=== PATIENT | male | born 1965 | race Caucasian/White ===

== ENCOUNTER 2018-05-20 15:40 | Emergency (ER) | payer BC ==
[2018-05-20] MEDS ORDERED: SODIUM CHLORIDE 0.9% 1,000 ML IV ONE (15:46)
[2018-05-20 15:47] VITALS: TEMP 98.6
[2018-05-20] MEDS ORDERED: DIPH,PERTUS(ACELL)TETVAC-LF 0.5 ML VIAL IM ONE (15:49)
[2018-05-20] MEDS ORDERED: ONDANSETRON 4 MG/2 ML VIAL IVP STA (15:50)
[2018-05-20] MEDS ORDERED: KETOROLAC 60 MG/2 ML VIAL IVP STA (15:50)
[2018-05-20] MEDS ORDERED: HYDROmorphone 1 MG/ML 1 ML SYRINGE IVP STA ×2 (15:50→16:36)
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
[2018-05-20 16:24] LABS: Basophils % (A) 0 %; Eosinophils # (A) 0.1 k/uL (0-0.7); Eosinophils % (A) 1 %; HCT 42.5 % (39.0-53.0); HGB 13.9 gm/dL (13.0-17.5); Lymphocytes # (A) 1.8 k/uL (1.0-4.8); Lymphocytes % (A) 23 %; MCHC 32.9 g/dL (31.0-37.0); MCV 88.4 fL (80.0-100.0); Mean Platelet Volume 7.6; Monocytes # (A) 0.4 k/uL (0-1.0); Monocytes % (A) 5 %; Neutrophils # (A) 5.5 k/uL (1.3-7.7); Neutrophils % (A) 71 %; Platelet Count 249 k/uL (150-450); RDW 14.4 % (11.5-15.5); WBC 7.8 k/uL (3.8-10.6)
[2018-05-20 16:35] LABS: ALT 26 U/L (21-72); AST 30 U/L (17-59); Albumin 4.5 g/dL (3.5-5.0); Alkaline Phosphatase 57 U/L (38-126); Anion Gap 15 mmol/L; Blood Urea Nitrogen 16 mg/dL (9-20); Calcium 9.5 mg/dL (8.4-10.2); Carbon Dioxide 21 mmol/L (22-30); Chloride 103 mmol/L (98-107); Glucose 117 mg/dL (74-99); Sodium 139 mmol/L (137-145); Total Bilirubin 0.6 mg/dL (0.2-1.3); Total Protein 7.5 g/dL (6.3-8.2)
[2018-05-20 17:34] VITALS: BP 141/95; PULSE 80; RESP 20
== END 2018-05-20 17:39 | disposition short-term general hospital (02) ==
LOC: EC 15:40
DX: T23.261A Burn of second degree of back of right hand, initial encounter (principal); T23.241A Burn of second degree of multiple right fingers (nail), including thumb, initial encounter; T22.211A Burn of second degree of right forearm, initial encounter; T31.0 Burns involving less than 10% of body surface; Z23 Encounter for immunization; X19.XXXA Contact with other heat and hot substances, initial encounter; Y93.89 Activity, other specified; Y92.009 Unspecified place in unspecified non-institutional (private) residence as the place of occurrence of the external cause
CPT/HCPCS: 36415; 93005; 80053; 85025; 90715; 99285; 96374; 96375 ×2; 96376; 96361; 90471; J2405; J1885; J1170

== ENCOUNTER 2022-03-15 15:28 | Observation (INO) | payer BC ==
[2022-03-15 16:14] LABS: Basophils # (A) 0.1 k/uL (0-0.2); Basophils % (A) 0 %; Eosinophils # (A) 0.2 k/uL (0-0.7); Eosinophils % (A) 1 %; HCT 47.4 % (39.0-53.0); HGB 15.2 gm/dL (13.0-17.5); Lymphocytes # (A) 1.6 k/uL (1.0-4.8); Lymphocytes % (A) 14 %; MCH 30.7 pg (25.0-35.0); MCV 95.9 fL (80.0-100.0); Mean Platelet Volume 8.7; Monocytes # (A) 0.6 k/uL (0-1.0); Monocytes % (A) 5 %; Neutrophils # (A) 8.8 k/uL (1.3-7.7); Neutrophils % (A) 78 %; Platelet Count 202 k/uL (150-450); RBC 4.94 m/uL (4.30-5.90); RDW 12.7 % (11.5-15.5); WBC 11.3 k/uL (3.8-10.6)
[2022-03-15 16:22] LABS: ALT 18 U/L (4-49); African American GFR (CKD) >90 (>60 ml/min/1.73 sqM); Albumin 4.6 g/dL (3.5-5.0); Anion Gap 13 mmol/L; Blood Urea Nitrogen 15 mg/dL (9-20); Calcium 9.4 mg/dL (8.4-10.2); Carbon Dioxide 24 mmol/L (22-30); Chloride 103 mmol/L (98-107); Glucose 99 mg/dL (74-99); Non-African American GFR(CKD) >90 (>60 ml/min/1.73 sqM); Sodium 140 mmol/L (137-145); Total Bilirubin 1.1 mg/dL (0.2-1.3); Total Protein 7.3 g/dL (6.3-8.2)
[2022-03-15 16:25] LABS: AST 36 U/L (17-59); Alkaline Phosphatase 65 U/L (38-126); Potassium 4.3 mmol/L (3.5-5.1)
[2022-03-15] MEDS ORDERED: NITROGLYCERIN SL TABS 0.4 MG TAB SUBLINGUAL STA (17:12)
[2022-03-15] MEDS ORDERED: ASPIRIN 81 MG PO STA (17:12)
--- NOTE | 2022-03-15 17:29 | ED ---
General Adult HPI - General Chief complaint: Chest Pain Stated complaint: Chest pain Time Seen by Provider: 03/15/22 17:05 Source: patient, RN notes reviewed, old records reviewed Mode of arrival: wheelchair Limitations: no limitations - History of Present Illness Initial comments: Patient is a 56-year-old male with past history remarkable for hypertension, hyperlipidemia who presents to the emergency department complaining of what he describes chest pain. Describes it as a crampy sensation located just under his sternum. Points to his epigastric region. States it somewhat radiates to both sides of his ribs. Denies any nausea or vomiting. Denies any diarrhea. Denies any change in bowel habits. Denies any shortness of breath, cough, fevers, does endorse chills. States that the pain began suddenly at 7 AM this morning. Says PCP, EKG showed sinus arrhythmia and he was sent here for further evaluation. Has not taken anything for the pain. Is not expenses pain previously. Unknown palliative or provocative factors. No change with movement. No change with activity. Denies lower extremity edema. Denies any orthopnea, PND. No history of heart issues. - Related Data Home Medications Medication Instructions Recorded Confirmed Lisinopril-Hctz 20-12.5 mg 1 tab PO DAILY 05/20/18 03/15/22 [Zestoretic 20-12.5] Multivitamins, Thera [Multivitamin 1 tab PO DAILY 05/20/18 03/15/22 (formulary)] Atorvastatin [Lipitor] 10 mg PO HS 03/15/22 03/15/22 Cholecalciferol [Vitamin D3 (125 125 mcg PO DAILY 03/15/22 03/15/22 Mcg = 5000 Iu)] Phentermine HCl [Adipex-P] 37.5 mg PO DAILY 03/15/22 03/15/22 Semaglutide [Ozempic] 0.5 mg SQ FINE 03/15/22 03/15/22 Allergies Allergy/AdvReac Type Severity Reaction Status Date / Time No Known Allergies Allergy Verified 03/15/22 18:22 Review of Systems ROS Statement: Those systems with pertinent positive or pertinent negative responses have been documented in the HPI. Review of Systems: CONST: Denies fever EYES: Denies blurry vision ENT: Denies nasal congestion C/V: Endorses chest pain RESP: Denies shortness of breath GI: Denies abdominal pain : Denies dysuria SKIN: Denies rash. MSK: Denies joint pain. NEURO: Denies headache ROS Other: All systems not noted in ROS Statement are negative. Past Medical History Past Medical History: Hypertension History of Any Multi-Drug Resistant Organisms: None Reported Past Surgical History: Tonsillectomy Additional Past Surgical History / Comment(s): Erika N Y Past Psychological History: No Psychological Hx Reported Past Alcohol Use History: Occasional Past Drug Use History: None Reported General Exam - General Exam Comments Initial Comments: General: Appears in no acute distress. HEAD: Normal with no signs of head trauma. EYES: PERRLA, EOMI, conjunctiva normal, no discharge. ENT: Hearing grossly intact, normal oropharynx. RESPIRATORY: Clear breath sounds bilaterally. No wheezes, rales, or rhonchi. C/V: Regular rate and rhythm. S1 and S2 auscultated, no edema, peripheral pulses 2+ and intact throughout ABD: Abdomen is soft, nondistended. When he points to his chest pain is actually epigastric abdominal pain more so. Mildly tender to palpation in the epigastric . No guarding. No peritoneal signs. No rebound tenderness. EXT: Normal range of motion, no obvious deformity SKIN: No rashes or lesions observed on exposed skin. NEURO: Alert and oriented 4. Limitations: no limitations Course Vital Signs 03/15/22 03/15/22 03/15/22 15:33 18:10 18:45 Temperature 97 F L 98.2 F Pulse Rate 87 70 Pulse Rate [ 73 Pulse Oximetery ] Respiratory 18 16 Rate Blood Pressure 161/94 123/80 O2 Sat by Pulse 98 96 Oximetry Medical Decision Making - Medical Decision Making Based on the patient's presentation and physical exam, I'm concerned for possible cardiopulmonary etiology, could be atypical ACS versus intra-abdominal process. Recommended repeating the EKG and obtaining pancreatic labs. Patient was in agreement with this plan. We'll provide the patient with a dose of aspirin as well as a single nitroglycerin tablet to evaluate for improvement. He was in agreement this plan. Workup was already initiated in triage and is remarkable for an EKG that shows no obvious ischemic process. Patient has a slight leukocytosis of 11.3. Troponin is undetectable. Remainder of the labs are unremarkable. X-rays still pending at this time. We'll repeat EKG. He was in agreement this plan. Vital signs within normal limits. Repeat EKG showed no signs of acute ischemic process. Laboratory studies are remarkable for mild leukocytosis of 11.3. There are 2 negative troponins. Chest x-ray shows no acute cardio pulmonary process. CT abd pelvis shows findings concerning for acute cholecystitis with associated gallbladder wall thickening, adjacent inflammatory changes. On reevaluation, patient still complaining of abdominal pain. We did discuss his findings. Blood cultures will be obtained and we will start him on IV and about expert I recommended admission for surgery evaluation. He was in agreement this plan.Vital signs remained within normal limits. I spoke with the on-call surgeon, Dr. Mohan who accepted the patient. Patient was admitted in stable condition. Patient is made nothing by mouth. IV fluids, as well as IV antibiotics are started. - Lab Data Result diagrams: 03/15/22 16:00 03/15/22 16:00 Lab Results 03/15/22 03/15/22 03/15/22 Range/Units 16:00 16:00 16:00 WBC 11.3 H (3.8-10.6) k/uL RBC 4.94 (4.30-5.90) m/uL Hgb 15.2 (13.0-17.5) gm/dL Hct 47.4 (39.0-53.0) % MCV 95.9 (80.0-100.0) fL MCH 30.7 (25.0-35.0) pg MCHC 32.0 (31.0-37.0) g/dL RDW 12.7 (11.5-15.5) % Plt Count 202 (150-450) k/uL MPV 8.7 Neutrophils % 78 % Lymphocytes % 14 % Monocytes % 5 % Eosinophils % 1 % Basophils % 0 % Neutrophils # 8.8 H (1.3-7.7) k/uL Lymphocytes # 1.6 (1.0-4.8) k/uL Monocytes # 0.6 (0-1.0) k/uL Eosinophils # 0.2 (0-0.7) k/uL Basophils # 0.1 (0-0.2) k/uL PT (9.0-12.0) sec INR (<1.2) APTT (22.0-30.0) sec Sodium 140 (137-145) mmol/L Potassium 4.3 (3.5-5.1) mmol/L Chloride 103 (98-107) mmol/L Carbon Dioxide 24 (22-30) mmol/L Anion Gap 13 mmol/L BUN 15 (9-20) mg/dL Creatinine 0.77 (0.66-1.25) mg/dL Est GFR (CKD-EPI)AfAm >90 (>60 ml/min/1.73 sqM) Est GFR (CKD-EPI)NonAf >90 (>60 ml/min/1.73 sqM) Glucose 99 (74-99) mg/dL Calcium 9.4 (8.4-10.2) mg/dL Total Bilirubin 1.1 (0.2-1.3) mg/dL AST 36 (17-59) U/L ALT 18 (4-49) U/L Alkaline Phosphatase 65 (38-126) U/L Troponin I <0.012 (0.000-0.034) ng/mL Total Protein 7.3 (6.3-8.2) g/dL Albumin 4.6 (3.5-5.0) g/dL Amylase (30-110) U/L Lipase (23-300) U/L 03/15/22 03/15/22 03/15/22 Range/Units 17:37 17:37 18:40 WBC (3.8-10.6) k/uL RBC (4.30-5.90) m/uL Hgb (13.0-17.5) gm/dL Hct (39.0-53.0) % MCV (80.0-100.0) fL MCH (25.0-35.0) pg MCHC (31.0-37.0) g/dL RDW (11.5-15.5) % Plt Count (150-450) k/uL MPV Neutrophils % % Lymphocytes % % Monocytes % % Eosinophils % % Basophils % % Neutrophils # (1.3-7.7) k/uL Lymphocytes # (1.0-4.8) k/uL Monocytes # (0-1.0) k/uL Eosinophils # (0-0.7) k/uL Basophils # (0-0.2) k/uL PT 10.1 (9.0-12.0) sec INR 0.9 (<1.2) APTT 24.3 (22.0-30.0) sec Sodium (137-145) mmol/L Potassium (3.5-5.1) mmol/L Chloride (98-107) mmol/L Carbon Dioxide (22-30) mmol/L Anion Gap mmol/L BUN (9-20) mg/dL Creatinine (0.66-1.25) mg/dL Est GFR (CKD-EPI)AfAm (>60 ml/min/1.73 sqM) Est GFR (CKD-EPI)NonAf (>60 ml/min/1.73 sqM) Glucose (74-99) mg/dL Calcium (8.4-10.2) mg/dL Total Bilirubin (0.2-1.3) mg/dL AST (17-59) U/L ALT (4-49) U/L Alkaline Phosphatase (38-126) U/L Troponin I <0.012 (0.000-0.034) ng/mL Total Protein (6.3-8.2) g/dL Albumin (3.5-5.0) g/dL Amylase 41 (30-110) U/L Lipase 111 (23-300) U/L - EKG Data -: EKG Interpreted by Me EKG Comments: 12-lead Electrocardiogram Interpretation Note EKG was reviewed and interpreted by myself. 12-lead ECG performed at 1540 is interpreted by me as revealing sinus bradycardia at a rate of 54 beats per minute. [place] is normal. NH interval is 150 ms, QRS duration is 105 ms, QTc is 396 ms.. There were no ST or T wave abnormalities to suggest myocardial ischemia or injury. R wave progression across the precordium was satisfactory. By my interpretation this EKG is non-diagnostic for acute ischemia. 12-lead Electrocardiogram Interpretation Note EKG was reviewed and interpreted by myself. 12-lead ECG performed at 1721 is interpreted by me as revealing sinus bradycardia at a rate of 58 beats per minute. [place] is normal. NH interval is 156 ms, QRS duration is 93 ms, QTc is 410 ms.. There were no ST or T wave abnormalities to suggest myocardial ischemia or injury. R wave progression across the precordium was satisfactory. By my interpretation this EKG is non-diagnostic for acute ischemia. No significant change from prior EKG. Disposition Clinical Impression: Acute cholecystitis Disposition: ADMITTED IP TO THIS HOSP Condition: Stable Referrals: Sd Suero MD [Primary Care Provider] - 1-2 days Time of Disposition: 20:50
[2022-03-15] MEDS ORDERED: SODIUM CHLORIDE 0.9% 1,000 ML IV STA ×2 (17:34→21:07)
[2022-03-15] MEDS ORDERED: MAG HYDROX/AL HYDROX/SIMETH 30 ML, HYOSCYAMINE ELIXIR 10 ML, LIDOCAINE VISCOUS 2% 10 ML PO STA ×3 (18:10)
[2022-03-15] MEDS ORDERED: PANTOPRAZOLE 40 MG/10 ML VIAL IVP STA (18:10)
[2022-03-15] MEDS ORDERED: MORPHINE SULFATE 4 MG/ML SYRINGE IVP STA ×2 (18:10→20:04)
[2022-03-15] MEDS ORDERED: ONDANSETRON 4 MG/2 ML VIAL IVP STA (18:10)
[2022-03-15] MEDS ORDERED: diphenhydrAMINE 50 MG/ML 1 ML VIAL IVP STA (18:10)
--- NOTE | 2022-03-15 18:24 | XR ---
EXAMINATION TYPE: XR chest 2V DATE OF EXAM: 03/15/2022 5:34 PM COMPARISON: None TECHNIQUE: XR chest 2V Frontal and lateral views of the chest. CLINICAL INDICATION:Male, 56 years old with history of chest pain; FINDINGS: Lungs/Pleura: There is no evidence of pleural effusion, focal consolidation, or pneumothorax. Pulmonary vascularity: Unremarkable. Heart/mediastinum: Cardiomediastinal silhouette is unremarkable. Musculoskeletal: No acute osseous pathology. IMPRESSION: No acute cardiopulmonary disease/process.
[2022-03-15 18:40] LABS: Amylase 41 U/L (30-110); Lipase 111 U/L (23-300)
[2022-03-15 18:41] LABS: INR 0.9 (<1.2); Partial Thromboplastin Time 24.3 sec (22.0-30.0); Prothrombin Time 10.1 sec (9.0-12.0)
--- NOTE | 2022-03-15 20:54 | CT ---
EXAMINATION TYPE: CT abdomen pelvis w con CT DLP: 1948.5 mGycm, Automated exposure control for dose reduction was used. DATE OF EXAM: 03/15/2022 7:35 PM COMPARISON: None CLINICAL INDICATION:Male, 56 years old with history of abdominal pain; upper abdominal pain TECHNIQUE: Axial CT of the abdomen and pelvis. Sagittal and coronal reformats were created on a [employer] workstation. Contrast used:100 mL of Isovue 300 with IV Contrast, Oral contrast used: without Oral Contrast FINDINGS: LOWER CHEST: Posterior dependent subsegmental atelectasis is noted. ABDOMEN LIVER: Diffusely hypoattenuating parenchyma. GALLBLADDER AND BILE DUCTS: Increased layering densities within the gallbladder lumen which is disten ded and demonstrates thickening of the wall. There is mild fat stranding changes around the gallbladd er. PANCREAS: Unremarkable. SPLEEN: Unremarkable. ADRENAL GLANDS: Unremarkable. KIDNEYS AND URETERS: No evidence of hydronephrosis or renal calculus. The ureters are unremarkable. PELVIS BLADDER: Unremarkable REPRODUCTIVE: Unremarkable. ABDOMEN & PELVIS STOMACH AND BOWEL: No evidence of bowel obstruction. Post surgical changes of the bowel consistent R [id number]. There is a gastric diverticulum extending towards the left adrenal gland. PERITONEUM: No evidence of pneumoperitoneum or free fluid. VASCULATURE: No evidence of aortic aneurysm. MUSCULOSKELETAL: No acute osseous abnormalities. Moderate disc degeneration changes are present throu ghout the thoracolumbar spine. LYMPH NODES: No gross evidence for lymphadenopathy. SOFT TISSUE/ABDOMINAL WALL: Unremarkable IMPRESSION: Findings suspicious for acute cholecystitis with associated wall thickening, adjacent inflammation ch anges and a bladder wall thickening.
[2022-03-15] MEDS ORDERED: ONDANSETRON 4 MG/2 ML VIAL IVP PRN (21:09)
[2022-03-15] MEDS ORDERED: MORPHINE SULFATE 4 MG/ML SYRINGE IV PRN (21:09)
[2022-03-15] MEDS ORDERED: NALOXONE 0.4 MG/ML 1 ML VIAL IV PRN (21:09)
[2022-03-15] MEDS: HYDROmorphone 0.5 MG/0.5 ML SYRINGE IVP PRN (21:48)
[2022-03-15] MEDS: metroNIDAZOLE-NS PMX 500 MG in SALINE 1 100ML.BAG IVPB SCH (23:40)
[2022-03-16] MEDS: HYDROmorphone 0.5 MG/0.5 ML SYRINGE IVP PRN ×4 (03:12→18:34)
[2022-03-16] MEDS: HEPARIN SODIUM,PORCINE/PF 5,000 UNIT/0.5 ML SYRINGE SQ SCH ×4 (03:13→21:04)
[2022-03-16 06:36] LABS: Basophils % (A) 0 %; Eosinophils % (A) 0 %; HGB 13.7 gm/dL (13.0-17.5); Lymphocytes # (A) 1.2 k/uL (1.0-4.8); Lymphocytes % (A) 14 %; MCH 31.2 pg (25.0-35.0); MCHC 32.5 g/dL (31.0-37.0); MCV 95.8 fL (80.0-100.0); Mean Platelet Volume 8.2; Monocytes # (A) 0.8 k/uL (0-1.0); Monocytes % (A) 9 %; Neutrophils # (A) 6.6 k/uL (1.3-7.7); Neutrophils % (A) 76 %; Platelet Count 176 k/uL (150-450); RBC 4.38 m/uL (4.30-5.90); RDW 12.7 % (11.5-15.5); WBC 8.7 k/uL (3.8-10.6)
[2022-03-16 06:52] LABS: African American GFR (CKD) >90 (>60 ml/min/1.73 sqM); Anion Gap 9 mmol/L; Blood Urea Nitrogen 13 mg/dL (9-20); Carbon Dioxide 28 mmol/L (22-30); Chloride 101 mmol/L (98-107); Glucose 114 mg/dL (74-99); Non-African American GFR(CKD) >90 (>60 ml/min/1.73 sqM); Potassium 4.2 mmol/L (3.5-5.1); Sodium 138 mmol/L (137-145)
[2022-03-16] MEDS ORDERED: LISINOPRIL-HCTZ 20-12.5 MG 1 EACH TAB PO SCH (09:00)
[2022-03-16] MEDS: metroNIDAZOLE-NS PMX 500 MG in SALINE 1 100ML.BAG IVPB SCH ×3 (10:04→21:02)
[2022-03-16] MEDS: DEXAMETHASONE SOD PHOSPHATE 4 MG/ML 1 ML VIAL IV ONE (12:42)
[2022-03-16] MEDS: LACTATED RINGERS 1,000 ML IV SCH (12:46)
--- NOTE | 2022-03-16 13:52 | P.GSHP ---
History of Present Illness H&P Date: 03/16/22 CHIEF COMPLAINT: Chest pain HISTORY OF PRESENT ILLNESS: This is a 56-year-old male in initially presented to the hospital with complaints of chest pain. His pain is actually located in the epigastric area. Patient reports that his pain started yesterday around 7 AM. Pain did radiate to his back. He felt that he was having indigestion. Patient reported that symptoms did worsen after he ate peanut butter and jelly. He denies any nausea or vomiting. He had a computed tomography scan of the abdomen and pelvis showing evidence of acute cholecystitis with gallbladder with wall thickening and inflammatory changes. White count was elevated. Patient started on antibiotics. He does have a history of Erika-en-Y gastric bypass surgery as well as history of diabetes mellitus. PAST MEDICAL HISTORY: Hypertension PAST SURGICAL HISTORY: See list. MEDICATIONS: See list. ALLERGIES: See list. SOCIAL HISTORY: No illicit drug use. REVIEW OF SYSTEMS: CONSTITUTIONAL: Denies fever or chills. HEENT: Denies blurred vision, vision changes, or eye pain. Denies hemoptysis CARDIOVASCULAR: Denies chest pain or pressure. RESPIRATORY: No shortness of breath. GASTROINTESTINAL: See HPI for pertinent findings HEMATOLOGIC: Denies bleeding disorders. GENITOURINARY: Denies any blood in urine or increased urinary frequency. SKIN: Denies pruitis. Denies rash. PHYSICAL EXAM: VITAL SIGNS: Reviewed GENERAL: Well-developed in no acute distress. HEENT: No sclera icterus. Extraocular movements grossly intact. Moist buccal mucosa. Head is atraumatic, normocephalic. No nasal drainage. ABDOMEN: Soft. Nondistended. Tenderness to palpation of right upper quadrant NEUROLOGIC: Alert and oriented. Cranial nerves II through XII grossly intact. LABORATORY DATA: WBC is 11.3 down to 8.7 Hgb 13.7 platelets 176 Sodium is 13 potassium 4.2 creatinine 0.82 LFTs are normal Troponin negative 2 lipase 111 IMAGING: Computed tomography scan findings suspicious for acute cholecystitis with ass ociated wall thickening, adjacent inflammation changes. ASSESSMENT: 1. Acute cholecystitis PLAN: -Patient scheduled for laparoscopic cholecystectomy tomorrow with Dr. sexton -Start low-fat diet today -Nothing by mouth after midnight -Medicine service consulted for medical management -Continue antibiotics -Continue IV fluids -Continue antiemetics as needed -Continue pain medication as needed Physician Insole Cementer note has been reviewed by physician. Signing provider agrees with the documented findings, assessment, and plan of care. Past Medical History Past Medical History: Hypertension History of Any Multi-Drug Resistant Organisms: None Reported Past Surgical History: Tonsillectomy Additional Past Surgical History / Comment(s): Erika N Y Past Psychological History: No Psychological Hx Reported Past Alcohol Use History: Occasional Past Drug Use History: None Reported Medications and Allergies Home Medications Medication Instructions Recorded Confirmed Type Lisinopril-Hctz 20-12.5 mg 1 tab PO DAILY 05/20/18 03/15/22 History [Zestoretic 20-12.5] Multivitamins, Thera [Multivitamin 1 tab PO DAILY 05/20/18 03/15/22 History (formulary)] Atorvastatin [Lipitor] 10 mg PO HS 03/15/22 03/15/22 History Cholecalciferol [Vitamin D3 (125 125 mcg PO DAILY 03/15/22 03/15/22 History Mcg = 5000 Iu)] Phentermine HCl [Adipex-P] 37.5 mg PO DAILY 03/15/22 03/15/22 History Semaglutide [Ozempic] 0.5 mg SQ FINE 03/15/22 03/15/22 History Allergies Allergy/AdvReac Type Severity Reaction Status Date / Time No Known Allergies Allergy Verified 03/15/22 18:22 Surgical - Exam Vital Signs Temp Pulse Resp BP Pulse Ox 97 F L 87 18 161/94 98 03/15/22 15:33 03/15/22 15:33 03/15/22 15:33 03/15/22 15:33 03/15/22 15:33 Results - Labs 03/16/22 06:17 03/16/22 06:17 Abnormal Lab Results - Last 24 Hours (Table) 03/15/22 03/16/22 Range/Units 16:00 06:17 WBC 11.3 H (3.8-10.6) k/uL Neutrophils # 8.8 H (1.3-7.7) k/uL Glucose 114 H (74-99) mg/dL Diabetes panel 03/15/22 03/16/22 Range/Units 16:00 06:17 Sodium 140 138 (137-145) mmol/L Potassium 4.3 4.2 (3.5-5.1) mmol/L Chloride 103 101 (98-107) mmol/L Carbon Dioxide 24 28 (22-30) mmol/L BUN 15 13 (9-20) mg/dL Creatinine 0.77 0.82 (0.66-1.25) mg/dL Glucose 99 114 H (74-99) mg/dL Calcium 9.4 9.0 (8.4-10.2) mg/dL AST 36 (17-59) U/L ALT 18 (4-49) U/L Alkaline Phosphatase 65 (38-126) U/L Total Protein 7.3 (6.3-8.2) g/dL Albumin 4.6 (3.5-5.0) g/dL Calcium panel 03/15/22 03/16/22 Range/Units 16:00 06:17 Calcium 9.4 9.0 (8.4-10.2) mg/dL Albumin 4.6 (3.5-5.0) g/dL Pituitary panel 03/15/22 03/16/22 Range/Units 16:00 06:17 Sodium 140 138 (137-145) mmol/L Potassium 4.3 4.2 (3.5-5.1) mmol/L Chloride 103 101 (98-107) mmol/L Carbon Dioxide 24 28 (22-30) mmol/L BUN 15 13 (9-20) mg/dL Creatinine 0.77 0.82 (0.66-1.25) mg/dL Glucose 99 114 H (74-99) mg/dL Calcium 9.4 9.0 (8.4-10.2) mg/dL Adrenal panel 03/15/22 03/16/22 Range/Units 16:00 06:17 Sodium 140 138 (137-145) mmol/L Potassium 4.3 4.2 (3.5-5.1) mmol/L Chloride 103 101 (98-107) mmol/L Carbon Dioxide 24 28 (22-30) mmol/L BUN 15 13 (9-20) mg/dL Creatinine 0.77 0.82 (0.66-1.25) mg/dL Glucose 99 114 H (74-99) mg/dL Calcium 9.4 9.0 (8.4-10.2) mg/dL Total Bilirubin 1.1 (0.2-1.3) mg/dL AST 36 (17-59) U/L ALT 18 (4-49) U/L Alkaline Phosphatase 65 (38-126) U/L Total Protein 7.3 (6.3-8.2) g/dL Albumin 4.6 (3.5-5.0) g/dL
--- NOTE | 2022-03-16 19:20 | P.CONS ---
History of Present Illness - Reason for Consult Consult date: 03/16/22 pre-op evalaution Requesting physician: Chance Mohan - Chief Complaint abdominal pain - History of Present Illness Patient is a 56-year-old male with a history of high blood pressure treated with medications, borderline high cholesterol, and obesity with prior Erika-en-Y gastric bypass who presented to the hospital complaints of abdominal pain. He was subsequently diagnosed with acute cholecystitis and admitted to general surgery. He has been receiving Rocephin and Flagyl. We are asked to consult for preoperative evaluation. Patient seen and examined at bedside. He complains of some right upper quadrant pain, he is feeling rather groggy from the pain medications, he denies any nausea, vomiting, lightheadedness. He denies any history of chest pain, he can easily walk one block or up 2 flights of stairs, he denies any recent shortness of breath. 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 Pertinent positives and negatives as discussed in HPI, a complete review of systems was performed and all other systems are negative. Vital signs reviewed General: nontoxic, no distress, appears at stated age Derm: warm, dry Head: atraumatic, normocephalic, symmetric Eyes: EOMI, no lid lag, anicteric sclera, pupils equal round reactive to light ENT: Nose and ears atraumatic, no thrush, no pharyngeal erythema Neck: No thyromegaly, no cervical lymphadenopathy, trachea midline, supple Mouth: no lip lesion, mucus membranes moist Cardiovascular: S1S2 reg, no murmur, positive posterior tibial pulse bilateral, no edema, capillary refill less than 2 seconds Lungs: clear to auscultation bilateral, no rhonchi, no rales, no wheeze, no accessory muscle use Abdominal: soft, + tender to palpation RUQ, no guarding, no appreciable organomegaly, normal bowel sounds Ext: no gross muscle atrophy, muscle strength intact all 4 extremities, no contractures Neuro: CN II-XII grossly intact, no focal neuro deficits Psych: Alert, oriented, appropriate affect Assessment/Plan: Acute cholecystitis Preoperative risk assessment -NSQIP risk score is below average in all categories for laparoscopic cholecystectomy including serious complications, any complication, chance for postop surgical infection, chance for reoperation, and . -Patient was informed of his score -No need for further preoperative testing -Patient is medically optimized for laparoscopic cholecystectomy -Surgical management -On Rocephin and Flagyl Hypertension - patient blood pressure is low normal - resume lisinopril - follow BP - hold HCTZ Dyslipidemia - statin Pre-DM - resume ozempic on discharge Obesity with BMI 33.2 - adipex - ozempic pre-DM Past Medical History Past Medical History: Hypertension History of Any Multi-Drug Resistant Organisms: None Reported Past Surgical History: Tonsillectomy Additional Past Surgical History / Comment(s): Erika N Y Past Anesthesia/Blood Transfusion Reactions: No Reported Reaction Past Psychological History: No Psychological Hx Reported Past Alcohol Use History: Occasional Past Drug Use History: None Reported Medications and Allergies Home Medications Medication Instructions Recorded Confirmed Type Lisinopril-Hctz 20-12.5 mg 1 tab PO DAILY 05/20/18 03/15/22 History [Zestoretic 20-12.5] Multivitamins, Thera [Multivitamin 1 tab PO DAILY 05/20/18 03/15/22 History (formulary)] Atorvastatin [Lipitor] 10 mg PO HS 03/15/22 03/15/22 History Cholecalciferol [Vitamin D3 (125 125 mcg PO DAILY 03/15/22 03/15/22 History Mcg = 5000 Iu)] Phentermine HCl [Adipex-P] 37.5 mg PO DAILY 03/15/22 03/15/22 History Semaglutide [Ozempic] 0.5 mg SQ FINE 03/15/22 03/15/22 History Allergies Allergy/AdvReac Type Severity Reaction Status Date / Time No Known Allergies Allergy Verified 03/15/22 18:22 Physical Exam Osteopathic Statement: *. No significant issues noted on an osteopathic structural exam other than those noted in the History and Physical/Consult. Vitals: Vital Signs Temp Pulse Pulse Resp BP BP Pulse Ox 03/16/22 15:00 99.2 F 88 16 137/88 17 L 03/16/22 12:17 85 18 03/16/22 12:14 97.5 F L 85 18 142/83 96 03/16/22 10:11 97.9 F 82 18 126/82 95 03/16/22 07:10 135/84 03/16/22 07:00 135/84 03/16/22 06:50 135/84 03/16/22 06:40 135/84 08/10/22 06:30 135/84 03/16/22 06:20 135/84 03/16/22 06:10 135/84 03/16/22 06:00 135/84 92 L 03/16/22 05:50 135/84 92 L 03/16/22 05:40 135/84 93 L 03/16/22 05:30 135/84 91 L 03/16/22 05:20 135/84 92 L 03/16/22 05:10 135/84 91 L 03/16/22 05:00 135/84 90 L 03/16/22 04:50 135/84 92 L 03/16/22 04:40 135/84 90 L 03/16/22 04:30 90 L 03/16/22 04:20 135/84 90 L 03/16/22 04:10 135/84 91 L 03/16/22 04:00 135/84 91 L 03/16/22 03:50 135/84 90 L 03/16/22 03:40 135/84 91 L 03/16/22 03:30 135/84 89 L 03/16/22 03:20 135/84 88 L 03/16/22 03:00 76 16 135/84 95 03/16/22 00:00 124/84 03/15/22 23:50 124/84 03/15/22 23:40 124/84 03/15/22 23:30 124/84 03/15/22 23:20 124/84 03/15/22 23:10 124/84 03/15/22 23:00 124/84 Intake and Output 03/16/22 03/16/22 03/16/22 06:59 14:59 22:59 Intake Total 500 Balance 500 Intake: Oral 500 Other: # Voids 2 Weight 102.058 kg Results CBC & Chem 7: 03/16/22 06:17 03/16/22 06:17 Labs: Abnormal Lab Results - Last 24 Hours (Table) 03/16/22 Range/Units 06:17 Glucose 114 H (74-99) mg/dL
[2022-03-16] MEDS: ATORVASTATIN 10 MG TAB PO SCH (21:04)
[2022-03-17] MEDS: HYDROmorphone 0.5 MG/0.5 ML SYRINGE IVP PRN ×5 (01:52→18:05)
[2022-03-17 05:23] LABS: Basophils % (A) 0 %; Eosinophils % (A) 0 %; HCT 42.7 % (39.0-53.0); HGB 13.8 gm/dL (13.0-17.5); Lymphocytes # (A) 1.8 k/uL (1.0-4.8); Lymphocytes % (A) 15 %; MCH 30.6 pg (25.0-35.0); MCHC 32.3 g/dL (31.0-37.0); MCV 94.7 fL (80.0-100.0); Mean Platelet Volume 8.1; Monocytes % (A) 9 %; Neutrophils # (A) 8.9 k/uL (1.3-7.7); Neutrophils % (A) 75 %; Platelet Count 162 k/uL (150-450); RBC 4.51 m/uL (4.30-5.90); RDW 12.9 % (11.5-15.5); WBC 11.9 k/uL (3.8-10.6)
[2022-03-17 05:34] LABS: African American GFR (CKD) >90 (>60 ml/min/1.73 sqM); Anion Gap 8 mmol/L; Blood Urea Nitrogen 9 mg/dL (9-20); Calcium 8.6 mg/dL (8.4-10.2); Carbon Dioxide 26 mmol/L (22-30); Chloride 98 mmol/L (98-107); Glucose 97 mg/dL (74-99); Non-African American GFR(CKD) >90 (>60 ml/min/1.73 sqM); Sodium 132 mmol/L (137-145)
[2022-03-17] MEDS: metroNIDAZOLE-NS PMX 500 MG in SALINE 1 100ML.BAG IVPB SCH ×3 (05:57→20:57)
[2022-03-17] MEDS: lisinopriL 20 MG TAB PO SCH (09:14)
[2022-03-17] MEDS: HEPARIN SODIUM,PORCINE/PF 5,000 UNIT/0.5 ML SYRINGE SQ SCH ×3 (09:21→22:59)
--- NOTE | 2022-03-17 14:23 | P.PN ---
Subjective Progress Note Date: 03/17/22 (delayed charting seen at 0900) Patient is a 56-year-old male with a history of high blood pressure treated with medications, borderline high cholesterol, and obesity with prior Erika-en-Y gastric bypass who presented to the hospital complaints of abdominal pain. He was subsequently diagnosed with acute cholecystitis and admitted to general surgery. He has been receiving Rocephin and Flagyl. Patient seen and examined at bedside. He continues to have some right upper quadrant pain and just feel "not right". He denies any chest pain or shortness of breath. He is excited to get his surgery done. General: nontoxic, no distress, appears at stated age Derm: warm, dry Head: atraumatic, normocephalic, symmetric Eyes: EOMI, no lid lag, anicteric sclera Mouth: no lip lesion, mucus membranes moist Cardiovascular: S1S2 reg, no murmur, positive posterior tibial pulse bilateral, Lungs: CTA bilateral, no rhonchi, no rales , no accessory muscle use Abdominal: soft, tender to palpation right upper quadrant, no guarding, no appreciable organomegaly Ext: no gross muscle atrophy, no edema, no contractures Neuro: CN II-XI grossly intact, no focal neuro deficits Psych: Alert, oriented, appropriate affect Assessment/Plan: Acute cholecystitis Preoperative risk assessment -Patient is medically optimized for laparoscopic cholecystectomy -Surgical management -On Rocephin and Flagyl + BC with gram positive - waitng final results - conitnue current abx - may be contaminant vs entercoccus Hypertension - patient blood pressure is low normal - Lisinopril - follow BP - hold HCTZ Dyslipidemia - statin Pre-DM - resume ozempic on discharge Obesity with BMI 33.2 - may resume adipex and ozempic D/W surgery Objective - Vital Signs Vital signs: Vital Signs Temp 99.0 F 03/17/22 07:00 Pulse 77 03/17/22 07:00 Resp 18 03/17/22 09:14 BP 130/75 03/17/22 07:00 Pulse Ox 93 L 03/17/22 07:00 FiO2 Intake & Output 03/16/22 03/17/22 03/17/22 18:59 06:59 18:59 Intake Total 500 Balance 500 Weight 102.058 kg Intake: Oral 500 Other: Voiding Method Toilet # Voids 2 1 - Labs CBC & Chem 7: 03/17/22 04:43 03/17/22 04:43 Labs: Abnormal Lab Results - Last 24 Hours (Table) 03/17/22 03/17/22 Range/Units 04:43 04:43 WBC 11.9 H (3.8-10.6) k/uL Neutrophils # 8.9 H (1.3-7.7) k/uL Sodium 132 L (137-145) mmol/L Microbiology - Last 24 Hours (Table) 03/15/22 22:10 Blood Culture Gram Stain - Preliminary Blood 03/15/22 22:10 Blood Culture - Final Blood 03/15/22 22:24 Blood Culture - Preliminary Blood No Growth after 24 hours
[2022-03-17] MEDS ORDERED: MIDAZOLAM 2 MG/2 ML VIAL ONE (14:30)
[2022-03-17] MEDS ORDERED: LIDOCAINE 2% INJ 20 MG/ML (2 ML VIAL) ONE (14:30)
[2022-03-17] MEDS ORDERED: PROPOFOL 10 MG/ML 20 ML VIAL IV ONE (14:30)
[2022-03-17] MEDS ORDERED: SUCCINYLCHOLINE CHLORIDE 200 MG/10 ML VIAL IV ONE (14:30)
[2022-03-17] MEDS ORDERED: PHENYLEPHRINE-0.9% NACL SYG 1,000 MCG/10 ML SYRINGE ONE (14:30)
[2022-03-17] MEDS ORDERED: fentaNYL (PF) 50 MCG/ML 2 ML AMP ONE (14:30)
[2022-03-17] MEDS ORDERED: IV FLUID CONTINUATION 600 ML IV ONE (16:05)
[2022-03-17 16:16] LABS: Glucose,Whole Blood 83 mg/dL (70-110)
[2022-03-17] MEDS: DEXAMETHASONE SOD PHOSPHATE 4 MG/ML 1 ML VIAL IV ONE (16:19)
[2022-03-17] MEDS: LACTATED RINGERS 1,000 ML IV SCH (16:28)
[2022-03-17] MEDS ORDERED: BUPIVACAIN-EPI 0.25%-1:200,000 30 ML VIAL SQ ONE (16:53)
[2022-03-17] MEDS ORDERED: SODIUM CHLORIDE 0.9% 100 ML with ceFAZolin 2,000 MG IV ONE ×4 (17:00)
[2022-03-17] MEDS ORDERED: LACTATED RINGERS 1,000 ML IV ONE (17:22)
--- NOTE | 2022-03-17 17:41 | P.OP ---
Date of Procedure: 03/17/22 Preoperative Diagnosis: Acute cholecystitis Postoperative Diagnosis: Gangrenous cholecystitis Procedure(s) Performed: Laparoscopic cholecystectomy Anesthesia: ASHWIN Surgeon: Chance Mohan Estimated Blood Loss (ml): 25 Pathology: other (Gallbladder) Condition: stable Disposition: PACU Description of Procedure: The patient was placed on the operating table. The patient received a general endotracheal tube anesthesia. The patients abdomen was prepped and draped in the usual sterile fashion. Through an infraumbilical stab incision, the fascia of the anterior abdominal wall was grasped with a pair of Kochers and then the Veress needle was placed in the peritoneal cavity. Position of the Veress needle was confirmed with positive drop test. The abdomen was then insufflated. After adequate insufflation, the 10 mm trocar was placed in the peritoneal cavity. Following this the laparoscope was placed in the peritoneal cavity. The patient was placed in the head-up, right side up position and then a 5 mm trocar was placed in the right lateral and right subcostal position under direct visualization. A 8 mm trocar was placed in the epigastric position. The gallbladder was visualized. There appeared to be patchy necrosis of the gallbladder. The gallbladder was quite thickened. The gallbladder was hydropic. The gallbladder is aspirated prior to grasping the gallbladder. There was thick mucopurulent fluid within the gallbladder. The gallbladder was grasped in the fundus and infundibulum. Traction on the gallbladder was placed in the lateral and the cephalad positions. The triangle of Calot was visualized.. The cystic duct was bluntly dissected until the union of the cystic duct and common bile duct was seen. A critical view of safety was achieved. The cystic duct was then divided and sealed with the Harmonic scissors. A PDS Endoloop was then placed throughout the cystic duct stump. The cystic artery divided and sealed with the Harmonic scissors. The gallbladder was then removed from the liver bed using Harmonic scissors. The gallbladder was then extracted through the epigastric port site. Operative field was checked for any bleeding spots and Harmonic scissors was used to coagulate the liver bed. The abdomen was irrigated. A GENNY drain was placed in gallbladder fossa. The trocars were removed. The skin was closed using interrupted 3-0 Vicryl suture. Dermabond dressing were applied. The patient tolerated the procedure well.
[2022-03-17] MEDS: ATORVASTATIN 10 MG TAB PO SCH (20:57)
[2022-03-17] MEDS: HYDROmorphone 1 MG/ML 1 ML SYRINGE IVP PRN (21:08)
[2022-03-18] MEDS: HYDROmorphone 1 MG/ML 1 ML SYRINGE IVP PRN ×3 (01:29→19:22)
[2022-03-18] MEDS: metroNIDAZOLE-NS PMX 500 MG in SALINE 1 100ML.BAG IVPB SCH ×3 (05:54→21:22)
[2022-03-18] MEDS: HYDROmorphone 0.5 MG/0.5 ML SYRINGE IVP PRN ×3 (06:03→13:03)
[2022-03-18] MEDS: lisinopriL 20 MG TAB PO SCH (08:41)
[2022-03-18] MEDS: ENOXAPARIN 40 MG/0.4 ML SYRINGE SQ SCH (08:41)
[2022-03-18] MEDS: HEPARIN SODIUM,PORCINE/PF 5,000 UNIT/0.5 ML SYRINGE SQ SCH ×2 (08:42→16:42)
--- NOTE | 2022-03-18 12:05 | P.PN ---
Subjective Progress Note Date: 03/18/22 Principal diagnosis: Gangrenous cholecystitis 56-year-old male says he feels somewhat better today. Still having surgical site discomfort and mild right shoulder pain. GENNY drain is serosanguineous. Tolerating low-fat regular diet. Objective - Vital Signs Vital signs: Vital Signs Temp 98.7 F 03/18/22 07:20 Pulse 78 03/18/22 07:20 Resp 18 03/18/22 07:20 BP 118/70 03/18/22 07:20 Pulse Ox 94 L 03/18/22 10:34 FiO2 Intake & Output 03/17/22 03/18/22 03/18/22 18:59 06:59 18:59 Intake Total 1500 240 Output Total 50 405 Balance 1450 -405 240 Intake: IV 1500 Oral 240 Output: Drainage 105 Abdomen 105 Urine 300 Estimated Blood Loss 50 Other: Voiding Method Toilet Urinal # Voids 1 1 - Exam Abdomen: Soft, mild distention, mild incisional tenderness, no erythema, GENNY drain is serosanguineous - Labs CBC & Chem 7: 03/17/22 04:43 03/17/22 04:43 Labs: Microbiology - Last 24 Hours (Table) 03/15/22 22:24 Blood Culture - Preliminary Blood No Growth after 48 hours 03/15/22 22:10 Blood Culture Gram Stain - Preliminary Blood 03/15/22 22:10 Blood Culture - Final Blood Assessment and Plan (1) Acute cholecystitis Narrative/Plan: Patient seems to be doing better at this time. Continue antibiotics. Repeat labs tomorrow. Ambulate. Continue low-fat diet. Monitor GENNY drain. Current Visit: Yes Status: Acute Code(s): K81.0 - ACUTE CHOLECYSTITIS SNOMED Code(s): 91118548
--- NOTE | 2022-03-18 12:23 | P.PN ---
Subjective Progress Note Date: 03/18/22 Patient is a 56-year-old male with a history of high blood pressure treated with medications, borderline high cholesterol, and obesity with prior Erika-en-Y gastric bypass who presented to the hospital complaints of abdominal pain. He was subsequently diagnosed with acute cholecystitis and admitted to general surgery. He has been receiving Rocephin and Flagyl. He underwent lap carlos with drain placement on 03/17/22. Patient seen and examined at bedside. Pain is well controlled, had some bleeding around the GENNY drain last night. General: nontoxic, no distress, appears at stated age Derm: warm, dry Head: atraumatic, normocephalic, symmetric Eyes: EOMI, no lid lag, anicteric sclera Mouth: no lip lesion, mucus membranes moist Cardiovascular: S1S2 reg, no murmur, positive posterior tibial pulse bilateral, Lungs: CTA bilateral, no rhonchi, no rales , no accessory muscle use Abdominal: soft, + tender to palpation diffusely, no guarding, GENNY with serosanganous fluid in place. Ext: no gross muscle atrophy, no edema, no contractures Neuro: CN II-XI grossly intact, no focal neuro deficits Psych: Alert, oriented, appropriate affect Assessment/Plan: Acute gangrenous Cholecystitis -Surgical management -On Rocephin and Flagyl + BC with gram positive - awaiting final results - continue current abx - may be skin contaminant vs entercoccus Hypertension - patient blood pressure is low normal - Lisinopril, new RX sent for lisinopril without HCTZ for discharge - follow BP - hold HCTZ Dyslipidemia - statin Pre-DM - resume ozempic on discharge Obesity with BMI 33.2 - may resume adipex and ozempic If BC consistent with skin contaminent, patient medically optimized for discharge. Called [facility] main lab and BC still pending at this time. Objective - Vital Signs Vital signs: Vital Signs Temp 98.7 F 03/18/22 07:20 Pulse 78 03/18/22 07:20 Resp 18 03/18/22 07:20 BP 118/70 03/18/22 07:20 Pulse Ox 94 L 03/18/22 10:34 FiO2 Intake & Output 03/17/22 03/18/22 03/18/22 18:59 06:59 18:59 Intake Total 1500 240 Output Total 50 405 Balance 1450 -405 240 Intake: IV 1500 Oral 240 Output: Drainage 105 Abdomen 105 Urine 300 Estimated Blood Loss 50 Other: Voiding Method Toilet Urinal # Voids 1 1 - Labs CBC & Chem 7: 03/17/22 04:43 03/17/22 04:43 Labs: Microbiology - Last 24 Hours (Table) 03/15/22 22:24 Blood Culture - Preliminary Blood No Growth after 48 hours 03/15/22 22:10 Blood Culture Gram Stain - Preliminary Blood 03/15/22 22:10 Blood Culture - Final Blood
[2022-03-18] MEDS: LACTATED RINGERS 1,000 ML IV SCH (13:00)
[2022-03-18] MEDS: ATORVASTATIN 10 MG TAB PO SCH (21:23)
[2022-03-19] MEDS: HEPARIN SODIUM,PORCINE/PF 5,000 UNIT/0.5 ML SYRINGE SQ SCH ×3 (00:40→15:10)
[2022-03-19] MEDS: HYDROmorphone 1 MG/ML 1 ML SYRINGE IVP PRN ×2 (00:40→06:06)
[2022-03-19] MEDS: metroNIDAZOLE-NS PMX 500 MG in SALINE 1 100ML.BAG IVPB SCH ×2 (06:05→13:56)
[2022-03-19] MEDS: ENOXAPARIN 40 MG/0.4 ML SYRINGE SQ SCH (08:02)
[2022-03-19] MEDS: lisinopriL 20 MG TAB PO SCH (08:03)
[2022-03-19 08:18] VITALS: RESP 18
[2022-03-19 08:56] LABS: Basophils # (A) 0.03 X 10*3/uL (0.00-0.10); Basophils % (A) 0.3 %; Eosinophils # (A) 0.12 X 10*3/uL (0.04-0.35); Eosinophils % (A) 1.2 %; HCT 36.3 % (39.6-50.0); HGB 12.4 g/dL (13.0-17.0); Immature Grans, Automated 0.3 %; Lymphocytes # (A) 1.44 X 10*3/uL (0.90-5.00); Lymphocytes % (A) 14.4 %; MCH 31.3 pg (27.0-32.0); MCHC 34.2 g/dL (32.0-37.0); MCV 91.7 fL (80.0-97.0); Monocytes # (A) 1.27 X 10*3/uL (0.20-1.00); Monocytes % (A) 12.7 %; NRBC Per 100 WBC 0 /100 WBCS (0.0-0.0); Neutrophils # (A) 7.08 X 10*3/uL (1.80-7.70); Neutrophils % (A) 71.1 %; Platelet Count 210 X 10*3/uL (140-440); RBC 3.96 X 10*6/uL (4.40-5.60); RDW 13.2 % (11.5-14.5); WBC 9.97 X 10*3/uL (4.50-10.00)
[2022-03-19 10:14] LABS: African American GFR (CKD) 122.3 (60.0-200.0); Albumin 3.4 g/dL (3.8-4.9); Albumin/Globulin Ratio 1.48 (1.60-3.17); Anion Gap 12.3 mmol/L (10.00-18.00); BUN/Creat Ratio 15.14 Ratio (12.00-20.00); Blood Urea Nitrogen 10.6 mg/dL (9.0-27.0); Calcium 8.3 mg/dL (8.7-10.3); Carbon Dioxide 23.7 mmol/L (20.0-27.5); Globulin 2.3 g/dL (1.6-3.3); Non-African American GFR(CKD) 105.5 (60.0-200.0); Potassium 3.9 mmol/L (3.5-5.5); Total Bilirubin 1.1 mg/dL (0.30-1.20); Total Protein 5.7 g/dL (6.2-8.2)
[2022-03-19] MEDS: LACTATED RINGERS 1,000 ML IV SCH (11:26)
--- NOTE | 2022-03-19 11:58 | P.PN ---
Subjective Progress Note Date: 03/19/22 Patient was seen this morning. He denies any acute complaints. He states that he has not had a bowel movement however has been passing gas. He says that there is only minimal output from his GENNY drain. I discussed with the patient and his at bedside that his blood culture that was positive is likely a contaminant. Objective - Vital Signs Vital signs: Vital Signs Temp 99.3 F 03/19/22 07:00 Pulse 85 03/19/22 07:00 Resp 18 03/19/22 07:00 BP 112/69 03/19/22 07:00 Pulse Ox 96 03/19/22 07:40 FiO2 Intake & Output 03/18/22 03/19/22 03/19/22 18:59 06:59 18:59 Intake Total 358 600 Output Total 30 980 Balance 328 -980 600 Intake: Oral 358 600 Output: Drainage 30 80 Abdomen 30 80 Urine 900 Other: Voiding Method Toilet Toilet # Voids 3 2 - Exam General examination - Alert and Oriented 3 in NAD Heart - + S1S2 no murmurs Lungs - Clear to auscultation Abdomen soft NT ND +ve BS Extremities - No edema [employer] - Moving all 4 extremities spontaneously Psych - Calm and cooperative - Labs CBC & Chem 7: 03/19/22 05:23 03/19/22 05:23 Labs: Abnormal Lab Results - Last 24 Hours (Table) 03/19/22 03/19/22 Range/Units 05:23 05:23 RBC 3.96 L (4.40-5.60) X 10*6/uL Hgb 12.4 L (13.0-17.0) g/dL Hct 36.3 L (39.6-50.0) % Monocytes # 1.27 H (0.20-1.00) X 10*3/uL Sodium 132 L (135-145) mmol/L Glucose 114 H (70-110) mg/dL Calcium 8.3 L (8.7-10.3) mg/dL Total Protein 5.7 L (6.2-8.2) g/dL Albumin 3.4 L (3.8-4.9) g/dL Albumin/Globulin Ratio 1.48 L (1.60-3.17) g/dL Microbiology - Last 24 Hours (Table) 03/15/22 22:24 Blood Culture - Preliminary Blood No Growth after 72 hours 03/15/22 22:10 Blood Culture Gram Stain - Preliminary Blood Blood Culture - Preliminary Micrococcus species Assessment and Plan Assessment: Acute gangrenous cholecystitis Surgical management On Rocephin and Flagyl / blood cultures positive for gram-positive cocci -Blood cultures are growing micrococcus species -This is likely a contaminant Hypertension -Hold hydrochlorothiazide on discharge -New prescription for lisinopril sent to pharmacy Dyslipidemia -Resume statin Prediabetes -Resumeozempic on discharge Obesity with BMI of 33 -Encourage weight loss Patient stable for discharge from a medical standpoint.
[2022-03-19 14:22] VITALS: BP 126/78; PULSE 94; TEMP 98.4
--- NOTE | 2022-03-19 17:26 | P.DS ---
Providers Date of admission: 03/15/22 21:09 Expected date of discharge: 03/19/22 Attending physician: Chance Mohan Consults: 03/16/22 13:53 Consult Physician Routine Consulting Provider: Lynette Vinson Consult Reason/Comments: medical management Do you want consulting provider notified?: Yes Primary care physician: Sd Ram Pio [facility] Course: CHIEF COMPLAINT: Gangrenous cholecystitis HISTORY OF PRESENT ILLNESS: The patient is a 56-year-old male was admitted with gangrenous cholecystitis. He underwent cholecystectomy. GENNY drain was placed. He reports moderate improvement in abdominal pain. ROS: No reports of nausea and vomiting. No new chest pain. No productive sputum PHYSICAL EXAM: VITAL SIGNS: Reviewed CONSTITUTIONAL: Well developed and in no acute distress. EYES: Conjuctivae without sclera icterus. Extraocular movements grossly intact. HEAD, EARS, NOSE, THROAT: Moist buccal mucosa. Head is atraumatic, normocephalic. Hears conversational speech. No nasal drainage. RESPIRATORY: Non-labored respirations and equal bilateral excursions. CARDIOVASCULAR: Palpable 2+ radial pulses. ABDOMEN: GENNY serosanguineous. No peritonitis. MUSCULOSKELETAL: No gross deformity of the lower extremities noted. No clubbing. No cyanosis. SKIN: Good skin turgor. Well perfused. NEUROLOGIC: Cranial nerves II through XII grossly intact. No focal or lateralizing signs. PSYCH: Appropriate affect. Alert and oriented to person, place and time. CLINICAL LABS: Reviewed. WBC normal 9.97. LFTs normal. ASSESSMENT: 1. Gangrenous cholecystitis PLAN: 1. Review of blood cultures more consistent with contamination. 2. Otherwise, discharge home with antibiotics and GENNY drain reviewed. 3. Follow up with surgeon in 1 week. Patient Condition at Discharge: Stable Plan - Discharge Summary Discharge Rx Participant: No New Discharge Prescriptions: New Docusate [Colace] 100 mg PO BID #20 capsule Ibuprofen [Motrin] 600 mg PO Q6HR PRN #40 tab PRN Reason: Pain oxyCODONE HCL [OxyIR] 5 mg PO Q6H PRN 3 Days #10 tab PRN Reason: Pain lisinopriL [Zestril] 20 mg PO DAILY #30 tab Amoxic-Pot Clav 875-125Mg [Augmentin 875-125] 1 tab PO BID 1 Days #20 tab Acetaminophen Tab [Tylenol] 650 mg PO Q6H #30 tab Continue Multivitamins, Thera [Multivitamin (formulary)] 1 tab PO DAILY Semaglutide [Ozempic] 0.5 mg SQ FINE Cholecalciferol [Vitamin D3 (125 Mcg = 5000 Iu)] 125 mcg PO DAILY Phentermine HCl [Adipex-P] 37.5 mg PO DAILY Atorvastatin [Lipitor] 10 mg PO HS Discontinued Lisinopril-Hctz 20-12.5 mg [Zestoretic 20-12.5] 1 tab PO DAILY Discharge Medication List Multivitamins, Thera [Multivitamin (formulary)] 1 tab PO DAILY 05/20/18 [History] Atorvastatin [Lipitor] 10 mg PO HS 03/15/22 [History] Cholecalciferol [Vitamin D3 (125 Mcg = 5000 Iu)] 125 mcg PO DAILY 03/15/22 [History] Phentermine HCl [Adipex-P] 37.5 mg PO DAILY 03/15/22 [History] Semaglutide [Ozempic] 0.5 mg SQ FINE 03/15/22 [History] Acetaminophen Tab [Tylenol] 650 mg PO Q6H #30 tab 03/17/22 [Rx] Docusate [Colace] 100 mg PO BID #20 capsule 03/17/22 [Rx] Ibuprofen [Motrin] 600 mg PO Q6HR PRN #40 tab 03/17/22 [Rx] oxyCODONE HCL [OxyIR] 5 mg PO Q6H PRN 3 Days #10 tab 03/17/22 [Rx] lisinopriL [Zestril] 20 mg PO DAILY #30 tab 03/18/22 [Rx] Amoxic-Pot Clav 875-125Mg [Augmentin 875-125] 1 tab PO BID 1 Days #20 tab 03/19/22 [Rx] Follow up Appointment(s)/Referral(s): Sd Suero MD [Primary Care Provider] - 1-2 days Chance Mohan MD [STAFF PHYSICIAN] - 1 Week Patient Instructions/Handouts: Laparoscopic Cholecystectomy (DC) Discharge Disposition: HOME SELF-CARE
[2022-03-20] MEDS ORDERED: NON FORMULARY DRUG (Semaglutide [Ozempic] 2 MG/0.75 ML Pen.Injctr) SQ SCH (09:00)
== END 2022-03-19 18:13 | disposition home or self-care (01) ==
LOC: EC 15:28 → 6NMEDSUR 21:09
PROVIDERS: ADMIT Surgery; ATTEND Surgery
DX: K80.00 Calculus of gallbladder with acute cholecystitis without obstruction (principal); K82.A1 Gangrene of gallbladder in cholecystitis; I10 Essential (primary) hypertension; E78.00 Pure hypercholesterolemia, unspecified; J98.11 Atelectasis; E11.9 Type 2 diabetes mellitus without complications; E66.9 Obesity, unspecified; K31.4 Gastric diverticulum; Z79.899 Other long term (current) drug therapy; Z98.84 Bariatric surgery status; Z68.33 Body mass index [BMI] 33.0-33.9, adult
CPT/HCPCS: 96376 ×5; 96366 ×5; 96372 ×5; 96375 ×2; 96365; 96367; 99285; 36415; 94760 ×2; 93005; 88304; 80053 ×2; 80048 ×2; 82150; 83690; 84484; 85025 ×4; 85610; 85730; 87040; 71046; 74177; 47562; G0378 ×5; J2250; J0330; J2270; J1200; J1100 ×2; J2405 ×2; J0690; J1650; J0696 ×5; J3010; J1170 ×7; J2370; J2704; C9113; Q9967; J1644 ×3; J2001

== ENCOUNTER 2024-02-22 18:44 | Inpatient (IN) | payer BC, OTHER ==
--- NOTE | 2024-02-22 19:18 | ED ---
Abdominal Pain HPI - General Chief Complaint: Abdominal Pain Stated Complaint: Colon Abscess Time Seen by Provider: 02/22/24 19:00 Source: patient, family, RN notes reviewed Mode of arrival: ambulatory Limitations: no limitations - History of Present Illness Initial Comments: 58-year-old male presenting with right upper quadrant pain x 3 weeks. States he has been having increasing sharp pain in the right upper quadrant. He admits constipation as well. He visited urgent care yesterday where they took an abdominal x-ray, which was negative, and ordered a CT scan of the abdomen for today. He was placed on amoxicillin. Patient was called after the CT scan of the abdomen today and told that he had an "abscess" on the right side of his abdomen. Denies fevers, chills, vomiting, dysuria. He has never had this before. States he has a history of a cholecystectomy and gastric bypass surgery. His past medical history also includes hypertension, hyperlipidemia, and type 2 diabetes. Denies blood thinners. - Related Data Home Medications Medication Instructions Recorded Confirmed Multivitamins, Thera [Multivitamin 1 tab PO DAILY 05/20/18 03/15/22 (formulary)] Atorvastatin [Lipitor] 10 mg PO HS 03/15/22 03/15/22 Cholecalciferol [Vitamin D3 (125 125 mcg PO DAILY 03/15/22 03/15/22 Mcg = 5000 Iu)] Phentermine HCl [Adipex-P] 37.5 mg PO DAILY 03/15/22 03/15/22 Semaglutide [Ozempic] 0.5 mg SQ FINE 03/15/22 03/15/22 Previous Rx's Medication Instructions Recorded Acetaminophen Tab [Tylenol] 650 mg PO Q6H #30 tab 03/17/22 Docusate [Colace] 100 mg PO BID #20 capsule 03/17/22 Ibuprofen [Motrin] 600 mg PO Q6HR PRN #40 tab 03/17/22 oxyCODONE HCL [OxyIR] 5 mg PO Q6H PRN 3 Days #10 tab 03/17/22 lisinopriL [Zestril] 20 mg PO DAILY #30 tab 03/18/22 Amoxic-Pot Clav 875-125Mg 1 tab PO BID 1 Days #20 tab 03/19/22 [Augmentin 875-125] Allergies Allergy/AdvReac Type Severity Reaction Status Date / Time No Known Allergies Allergy Verified 03/15/22 18:22 Review of Systems ROS Statement: Those systems with pertinent positive or pertinent negative responses have been documented in the HPI. ROS Other: All systems not noted in ROS Statement are negative. Past Medical History Past Medical History: Diabetes Mellitus, Hypertension History of Any Multi-Drug Resistant Organisms: None Reported Past Surgical History: Bariatric Surgery, Cholecystectomy, Orthopedic Surgery, Tonsillectomy Additional Past Surgical History / Comment(s): Erika N Y gastric bypass retinal detachment Past Anesthesia/Blood Transfusion Reactions: No Reported Reaction Past Psychological History: No Psychological Hx Reported Past Alcohol Use History: Occasional Past Drug Use History: None Reported General Exam Limitations: no limitations General appearance: alert, in no apparent distress Head exam: Present: atraumatic, normocephalic, normal inspection Eye exam: Present: normal appearance, PERRL, EOMI. Absent: scleral icterus, conjunctival injection, periorbital swelling ENT exam: Present: normal exam, mucous membranes moist Respiratory exam: Present: normal lung sounds bilaterally. Absent: respiratory distress, wheezes, rales, rhonchi, stridor Cardiovascular Exam: Present: regular rate, normal rhythm, normal heart sounds. Absent: systolic murmur, diastolic murmur, rubs, gallop, clicks GI/Abdominal exam: Present: soft, normal bowel sounds, other (There is a firm mass upon deep palpation of right upper quadrant. No overlying skin changes.). Absent: distended, tenderness, guarding, rebound, rigid Extremities exam: Present: normal inspection, full ROM, normal capillary refill. Absent: tenderness, pedal edema, joint swelling, calf tenderness Back exam: Present: normal inspection. Absent: tenderness, CVA tenderness (R), CVA tenderness (L) Neurological exam: Present: alert, oriented X3, CN II-XII intact Psychiatric exam: Present: normal affect, normal mood Skin exam: Present: warm, dry, intact, normal color. Absent: rash Course Vital Signs 02/22/24 18:51 Temperature 98.2 F Pulse Rate 64 Respiratory 16 Rate Blood Pressure 124/79 O2 Sat by Pulse 98 Oximetry Medical Decision Making - Medical Decision Making Was pt. sent in by a medical professional or institution (, PA, [employer] [facility] [facility], urgent care, hospital, or shelter...) When possible be specific @ -Sent by Dr. Suero's office for intra-abdominal abscess Did you speak to anyone other than the patient for history (EMS, parent, family, police, friend...)? What history was obtained from this source @ -No Did you review nursing and triage notes (agree or disagree)? Why? @ -I reviewed and agree with nursing and triage notes Were old charts reviewed (outside hosp., previous admission, EMS record, old EKG, old radiological studies, urgent care reports/EKG's, shelter records)? Report findings @ -Final read from CT scan from earlier today reviewedright abdominal wall intraperitoneal abscess measuring up to 4.8 cm Differential Diagnosis (chest pain, altered mental status, abdominal pain women, abdominal pain men, vaginal bleeding, weakness, fever, dyspnea, syncope, headache, dizziness, GI bleed, back pain, seizure, CVA, palpatations, mental health, musculoskeletal)? @ -Differential Abdominal Pain Men: Appendicitis, cholecystitis, diverticulosis, ischemic bowel, pancreatitis, hepatitis, UTI, gastroenteritis, AAA, incarcerated hernia, bowel obstruction, constipation, inflammatory bowel, hepatitis, peptic ulcer disease, splenic infarction, perforated viscus, testicular torsion, this is not meant to be an all-inclusive list EKG interpreted by me (3pts min.). @ -As above X-rays interpreted by me (1pt min.). @ -None done CT interpreted by me (1pt min.). @ -None done U/S interpreted by me (1pt. min.). @ -None done What testing was considered but not performed or refused? (CT, X-rays, U/S, labs)? Why? @ -None What meds were considered but not given or refused? Why? @ -None Did you discuss the management of the patient with other professionals (professionals i.e. , PA, [employer], lab, RT, psych nurse, social sciences instructor, certified composites technician, teacher, freedom of information officer, hospice case manager)? Give summary @ -I spoke with Dr. Cordoba who accepts admission at this time for intra-abdominal abscess with consultation to surgical services Was smoking cessation discussed for >3mins.? @ -No Was critical care preformed (if so, how long)? @ -No Were there social determinants of health that impacted care today? How? (Homelessness, low income, unemployed, alcoholism, drug addiction, transportation, low edu. Level, literacy, decrease access to med. care, custodial, rehab)? @ -No Was there de-escalation of care discussed even if they declined (Discuss DNR or withdrawal of care, Hospice)? DNR status @ -No What co-morbidities impacted this encounter? (DM, HTN, Smoking, COPD, CAD, Cancer, CVA, ARF, Chemo, Hep., AIDS, mental health diagnosis, sleep apnea, morbid obesity)? @ -None Was patient admitted / discharged? Hospital course, mention meds given and route, prescriptions, significant lab abnormalities, going to OR and other pertinent info. @ -Patient was admitted. Patient was seen and evaluated for intra-abdominal abscess diagnosed on CT scan earlier today at formerly [facility] at [address] [place] [address] (Dr. Suero's office). He has been having right upper quadrant pain x 3 weeks. No red flag symptoms. Vital signs are within normal limits. Firm mass palpated on right upper quadrant. Lab work including CBC, CMP, lactic acid, lipase is unremarkable. White blood cell count is 6.7. CT scan final read reviewed on patient's phone-right abdominal wall intraperitoneal abscess measuring up to 4.8 cm. He was started on IV Zosyn. I spoke with Dr. Cordoba from [facility] who accepts admission at this time for intra-abdominal abscess with consultation to surgical services. Patient is agreeable to plan. Undiagnosed new problem with uncertain prognosis? @ -No Drug Therapy requiring intensive monitoring for toxicity (Heparin, Nitro, Insulin, Cardizem)? @ -No Were any procedures done? @ -No Diagnosis/symptom? @ -Intra-abdominal abscess Acute, or Chronic, or Acute on Chronic? @ -Acute Uncomplicated (without systemic symptoms) or Complicated (systemic symptoms)? @ -Uncomplicated Side effects of treatment? @ -No Exacerbation, Progression, or Severe Exacerbation? @ -No Poses a threat to life or bodily function? How? (Chest pain, USA, ND, pneumonia, PE, COPD, DKA, ARF, appy, cholecystitis, CVA, Diverticulitis, Homicidal, Suicidal, threat to staff... and all critical care pts) @ -Possibly - Lab Data Result diagrams: 02/22/24 19:51 02/22/24 19:51 Lab Results 02/22/24 02/22/24 02/22/24 Range/Units 19:51 19:51 19:51 WBC 6.7 (3.8-10.6) k/uL RBC 4.50 (4.30-5.90) m/uL Hgb 13.9 (13.0-17.5) gm/dL Hct 42.6 (39.0-53.0) % MCV 94.6 (80.0-100.0) fL MCH 30.9 (25.0-35.0) pg MCHC 32.6 (31.0-37.0) g/dL RDW 12.4 (11.5-15.5) % Plt Count 249 (150-450) k/uL MPV 7.7 Neutrophils % 54 % Lymphocytes % 32 % Monocytes % 8 % Eosinophils % 4 % Basophils % 0 % Neutrophils # 3.6 (1.3-7.7) k/uL Lymphocytes # 2.2 (1.0-4.8) k/uL Monocytes # 0.5 (0-1.0) k/uL Eosinophils # 0.3 (0-0.7) k/uL Basophils # 0.0 (0-0.2) k/uL PT 11.1 (10.0-12.5) sec INR 1.0 (<1.2) APTT 26.0 (22.0-30.0) sec Sodium 138 (137-145) mmol/L Potassium 4.3 (3.5-5.1) mmol/L Chloride 103 (98-107) mmol/L Carbon Dioxide 28 (22-30) mmol/L Anion Gap 7 mmol/L BUN 12 (9-20) mg/dL Creatinine 0.65 L (0.66-1.25) mg/dL Est GFR (CKD-EPI)AfAm >90 (>60 ml/min/1.73 sqM) Est GFR (CKD-EPI)NonAf >90 (>60 ml/min/1.73 sqM) Glucose 89 (74-99) mg/dL Plasma Lactic Acid Sunny (0.7-2.0) mmol/L Calcium 9.6 (8.4-10.2) mg/dL Total Bilirubin 0.9 (0.2-1.3) mg/dL AST 30 (17-59) U/L ALT 20 (4-49) U/L Alkaline Phosphatase 67 (38-126) U/L Total Protein 7.2 (6.3-8.2) g/dL Albumin 4.4 (3.5-5.0) g/dL Lipase 104 (23-300) U/L Urine Color Urine Appearance (Clear) Urine pH (5.0-8.0) Ur Specific [place] (1.001-1.035) Urine Protein (Negative) Urine Glucose (UA) (Negative) Urine Ketones (Negative) Urine Blood (Negative) Urine Nitrite (Negative) Urine Bilirubin (Negative) Urine Urobilinogen (<2.0) mg/dL Ur Leukocyte Esterase (Negative) 02/22/24 02/22/24 Range/Units 19:51 19:51 WBC (3.8-10.6) k/uL RBC (4.30-5.90) m/uL Hgb (13.0-17.5) gm/dL Hct (39.0-53.0) % MCV (80.0-100.0) fL MCH (25.0-35.0) pg MCHC (31.0-37.0) g/dL RDW (11.5-15.5) % Plt Count (150-450) k/uL MPV Neutrophils % % Lymphocytes % % Monocytes % % Eosinophils % % Basophils % % Neutrophils # (1.3-7.7) k/uL Lymphocytes # (1.0-4.8) k/uL Monocytes # (0-1.0) k/uL Eosinophils # (0-0.7) k/uL Basophils # (0-0.2) k/uL PT (10.0-12.5) sec INR (<1.2) APTT (22.0-30.0) sec Sodium (137-145) mmol/L Potassium (3.5-5.1) mmol/L Chloride (98-107) mmol/L Carbon Dioxide (22-30) mmol/L Anion Gap mmol/L BUN (9-20) mg/dL Creatinine (0.66-1.25) mg/dL Est GFR (CKD-EPI)AfAm (>60 ml/min/1.73 sqM) Est GFR (CKD-EPI)NonAf (>60 ml/min/1.73 sqM) Glucose (74-99) mg/dL Plasma Lactic Acid Sunny 1.2 (0.7-2.0) mmol/L Calcium (8.4-10.2) mg/dL Total Bilirubin (0.2-1.3) mg/dL AST (17-59) U/L ALT (4-49) U/L Alkaline Phosphatase (38-126) U/L Total Protein (6.3-8.2) g/dL Albumin (3.5-5.0) g/dL Lipase (23-300) U/L Urine Color Colorless Urine Appearance Clear (Clear) Urine pH 6.5 (5.0-8.0) Ur Specific [place] 1.015 (1.001-1.035) Urine Protein Negative (Negative) Urine Glucose (UA) Negative (Negative) Urine Ketones Negative (Negative) Urine Blood Negative (Negative) Urine Nitrite Negative (Negative) Urine Bilirubin Negative (Negative) Urine Urobilinogen <2.0 (<2.0) mg/dL Ur Leukocyte Esterase Negative (Negative) Disposition Clinical Impression: Intra-abdominal abscess Disposition: ADMITTED IP TO THIS HOSP Condition: Stable Time of Disposition: 21:12
[2024-02-22 20:01] LABS: Basophils % (A) 0 %; Eosinophils # (A) 0.3 k/uL (0-0.7); Eosinophils % (A) 4 %; HCT 42.6 % (39.0-53.0); HGB 13.9 gm/dL (13.0-17.5); Lymphocytes # (A) 2.2 k/uL (1.0-4.8); Lymphocytes % (A) 32 %; MCH 30.9 pg (25.0-35.0); MCHC 32.6 g/dL (31.0-37.0); MCV 94.6 fL (80.0-100.0); Mean Platelet Volume 7.7; Monocytes # (A) 0.5 k/uL (0-1.0); Monocytes % (A) 8 %; Neutrophils # (A) 3.6 k/uL (1.3-7.7); Neutrophils % (A) 54 %; Platelet Count 249 k/uL (150-450); RDW 12.4 % (11.5-15.5); WBC 6.7 k/uL (3.8-10.6)
[2024-02-22 20:02] LABS: Appearance,Urine Clear (Clear); Bilirubin,Urine Negative (Negative); Blood,Urine Negative (Negative); Color,Urine Colorless; Glucose,Urine (UA) Negative (Negative); Ketones,Urine Negative (Negative); Leukocyte Esterase,Urine Negative (Negative); Nitrite,Urine Negative (Negative); PH, Urine 6.5 (5.0-8.0); Protein,Urine Negative (Negative); Specific Gravity,Urine 1.015 (1.001-1.035); Urobilinogen,Urine <2.0 mg/dL (<2.0)
[2024-02-22 20:11] LABS: Prothrombin Time 11.1 sec (10.0-12.5)
[2024-02-22 20:19] LABS: ALT 20 U/L (4-49); AST 30 U/L (17-59); African American GFR (CKD) >90 (>60 ml/min/1.73 sqM); Albumin 4.4 g/dL (3.5-5.0); Alkaline Phosphatase 67 U/L (38-126); Anion Gap 7 mmol/L; Blood Urea Nitrogen 12 mg/dL (9-20); Calcium 9.6 mg/dL (8.4-10.2); Carbon Dioxide 28 mmol/L (22-30); Chloride 103 mmol/L (98-107); Glucose 89 mg/dL (74-99); Lipase 104 U/L (23-300); Non-African American GFR(CKD) >90 (>60 ml/min/1.73 sqM); Potassium 4.3 mmol/L (3.5-5.1); Sodium 138 mmol/L (137-145); Total Bilirubin 0.9 mg/dL (0.2-1.3); Total Protein 7.2 g/dL (6.3-8.2)
[2024-02-22] MEDS ORDERED: NALOXONE 0.4 MG/ML 1 ML VIAL IV PRN (21:09)
[2024-02-22] MEDS ORDERED: ONDANSETRON 4 MG/2 ML VIAL IVP PRN (21:09)
[2024-02-22] MEDS ORDERED: KETOROLAC 15 MG/ML 1 ML VIAL IVP PRN (21:09)
[2024-02-22] MEDS: PIPERACILLIN-TAZOBACTAM 3.375 GM in SODIUM CHLORIDE 0.9% 100 ML IVPB STA (21:56)
--- NOTE | 2024-02-23 03:13 | P.HPIM ---
History of Present Illness H&P Date: 02/23/24 Patient is a 58-year-old male with a PMH of hypertension, type II DM, and hyperlipidemia who presents to the emergency room for an abdominal abscess. Patient reports that over the past 2 to 3 weeks he has been experiencing intermittent right upper quadrant abdominal discomfort. The pain has gradually worsened for which she was seen at the urgent care center yesterday where an abdominal x-ray was ordered which was unremarkable and subsequently an abdominal CT was ordered which was performed yesterday. The patient was subsequently called at home and advised to go to the emergency room as there was an abscess on imaging. Patient reports ongoing mild intermittent right abdominal pain. He denies experiencing fever, chills, nausea, vomiting. He does report occasional constipation with some loose bowel movements over the past 2 weeks. The patient underwent a cholecystectomy in 2011. The patient had the report for the CT abdomen on his phone which was reviewed showing right-sided intraperitoneal 4.8 cm abscess with no other abnormalities. Laboratory evaluation was reviewed with WBC count 6.7, hemoglobin 13.9, sodium 138, potassium 4.3, BUN 12, creatinine 0.65 with an unremarkable UA. ED documentation reviewed and case discussed with ED provider. Review of systems: Pertinent positives and negatives as discussed in HPI, a complete review of systems was performed and all other systems are negative. Physical examination: Vital signs reviewed General: non toxic, no distress, appears at stated age, obese Derm: no unusual rashes/lesions, warm Head: atraumatic, normocephalic, symmetric Eyes: EOMI, no lid lag, anicteric sclera, pupils equal round reactive to light ENT: Nose and ears atraumatic Neck: No cervical lymphadenopathy, trachea midline, supple Mouth: no lip lesion, mucus membranes moist Cardiovascular: S1S2 reg, no murmur, positive dorsalis pedis pulse bilateral, no edema Lungs: CTA bilateral, no rhonchi, no rales, no accessory muscle use Abdominal: soft, palpable mildly tender mass in the right lateral abdomen, no guarding Ext: muscle strength 5 out of 5 in all 4 extremities grossly, no gross muscle atrophy, no contractures, Neuro: CN II-XI grossly intact, no gross focal neuro deficits Psych: Alert, oriented, appropriate affect Assessment: Intraperitoneal abscess, unclear etiology Chronic conditions: Type II DM, hypertension, hyperlipidemia Imaging: The patient had the report for the CT abdomen on his phone which was reviewed showing right-sided intraperitoneal 4.8 cm abscess with no other abnormalities Data Review: Laboratory evaluation was reviewed with WBC count 6.7, hemoglobin 13.9, sodium 138, potassium 4.3, BUN 12, creatinine 0.65 with an unremarkable UA. Plan: General surgery consulted Abdominal ultrasound ordered for localization Continue patient on Zosyn 3.375 g every 8 hourly N.p.o. for now Resume home medications once reconciled Toradol 15 mg IV push every 6 hours as needed for pain Insulin sliding scale and blood glucose monitoring DVT prophylaxis: Lovenox Subq The patient is admitted with an anticipated greater than 2 midnight stay for evaluation of abdominal abscess CODE STATUS: Full Code Discussed with: Patient Anticipated discharge place: Home Past Medical History Past Medical History: Diabetes Mellitus, Hypertension History of Any Multi-Drug Resistant Organisms: None Reported Past Surgical History: Bariatric Surgery, Cholecystectomy, Orthopedic Surgery, Tonsillectomy Additional Past Surgical History / Comment(s): Erika N Y gastric bypass retinal detachment Past Anesthesia/Blood Transfusion Reactions: No Reported Reaction Past Psychological History: No Psychological Hx Reported Past Alcohol Use History: Occasional Past Drug Use History: None Reported - Past Family History Mother Family Medical History: Hyperlipidemia Medications and Allergies Home Medications Medication Instructions Recorded Confirmed Type Multivitamins, Thera [Multivitamin 1 tab PO DAILY 05/20/18 03/15/22 History (formulary)] Atorvastatin [Lipitor] 10 mg PO HS 03/15/22 03/15/22 History Cholecalciferol [Vitamin D3 (125 125 mcg PO DAILY 03/15/22 03/15/22 History Mcg = 5000 Iu)] Phentermine HCl [Adipex-P] 37.5 mg PO DAILY 03/15/22 03/15/22 History Semaglutide [Ozempic] 0.5 mg SQ FINE 03/15/22 03/15/22 History Acetaminophen Tab [Tylenol] 650 mg PO Q6H #30 tab 03/17/22 Rx Docusate [Colace] 100 mg PO BID #20 capsule 03/17/22 Rx Ibuprofen [Motrin] 600 mg PO Q6HR PRN #40 tab 03/17/22 Rx oxyCODONE HCL [OxyIR] 5 mg PO Q6H PRN 3 Days #10 tab 03/17/22 Rx lisinopriL [Zestril] 20 mg PO DAILY #30 tab 03/18/22 Rx Amoxic-Pot Clav 875-125Mg 1 tab PO BID 1 Days #20 tab 03/19/22 Rx [Augmentin 875-125] Allergies Allergy/AdvReac Type Severity Reaction Status Date / Time No Known Allergies Allergy Verified 03/15/22 18:22 Physical Exam Vitals: Vital Signs Temp Pulse Resp BP Pulse Ox 02/23/24 00:59 67 18 128/92 96 02/22/24 22:49 68 18 134/60 98 02/22/24 18:51 98.2 F 64 16 124/79 98 Intake and Output 02/22/24 02/22/24 02/23/24 14:59 22:59 06:59 Other: Weight 102.058 kg Results CBC & Chem 7: 02/22/24 19:51 02/22/24 19:51 Labs: Abnormal Lab Results - Last 24 Hours (Table) 02/22/24 Range/Units 19:51 Creatinine 0.65 L (0.66-1.25) mg/dL
[2024-02-23] MEDS: INSULIN ASPART (NovoLOG) 100 UNIT/ML VIAL SQ SCH (07:13)
[2024-02-23 07:22] LABS: Glucose,Whole Blood 79 mg/dL (70-110)
--- NOTE | 2024-02-23 07:44 | US ---
EXAMINATION TYPE: US abdomen limited DATE OF EXAM: 02/23/2024 COMPARISON: NONE CLINICAL INDICATION: Male, 58 years old with history of R abd abscess localization and characterizati on; Findings: Head Cook notes: Right abdomen: 8.0 x 3.3 x 5.9cm complex irregular vascular area seen anterior to liver IMPRESSION: Anterior and inferior perihepatic fluid collection measuring 8.0 x 5.9 x 3.3 cm along the right liver lobe.
[2024-02-23] MEDS: PIPERACILLIN-TAZOBACTAM 3.375 GM in SODIUM CHLORIDE 0.9% 100 ML IVPB SCH (08:45)
[2024-02-23] MEDS: ASPIRIN 81 MG PO SCH (08:51)
[2024-02-23] MEDS: ENOXAPARIN 40 MG/0.4 ML SYRINGE SQ SCH (08:52)
[2024-02-23] MEDS: MULTIVITAMINS, THERA 1 EACH TAB PO SCH (08:52)
[2024-02-23] MEDS: FERROUS SULFATE 325 MG TAB PO SCH (08:52)
[2024-02-23] MEDS ORDERED: hydroCHLOROthiazide 12.5 MG CAP PO SCH (09:00)
[2024-02-23] MEDS ORDERED: lisinopriL 20 MG TAB PO SCH (09:00)
[2024-02-23] MEDS: LISINOPRIL-HCTZ 20-12.5 MG 1 EACH TAB PO SCH (10:02)
[2024-02-23 12:16] LABS: Glucose,Whole Blood 75 mg/dL (70-110)
--- NOTE | 2024-02-23 12:55 | P.GSCN ---
History of Present Illness Consult date: 02/23/24 History of present illness: CHIEF COMPLAINT: right upper quadrant abdominal pain HISTORY OF PRESENT ILLNESS: this is a 58-year-old male who presented to the hospital with complaints of right upper quadrant abdominal pain for the past 3 weeks. Patient had been seen by his PCP and had a computed tomography scan completed outpatient that had reported an abdominal abscess. Patient informed of results and told to come to the ER by his PCP. Patient had an ultrasound completed that reported anterior andand inferior perihepatic fluid collection measuring 8 x 5.9 x 3.3 cm along the right liver lobe. Surgical service consulted in regards toabdominal sepsis. Patient denies any fever or chills or sweats. He does have a history of a cholecystectomy in March 2022 and a history of Erika-en-Y gastric bypass. Patient has been started on antibiotics. PAST MEDICAL HISTORY: diabetes mellitus, hypertension PAST SURGICAL HISTORY: Eriak-en-Y gastric, Cholecystectomy, Orthopedic Surgery, Tonsillectomy MEDICATIONS: See below ALLERGIES: See below SOCIAL HISTORY: No illicit drug use. REVIEW OF SYSTEMS: CONSTITUTIONAL: Denies fever or chills. HEENT: Denies blurred vision, vision changes, or eye pain. Denies hemoptysis CARDIOVASCULAR: Denies chest pain or pressure. RESPIRATORY: No shortness of breath. GASTROINTESTINAL: See HPI for pertinent findings HEMATOLOGIC: Denies bleeding disorders. GENITOURINARY: Denies any blood in urine or increased urinary frequency. SKIN: Denies pruitis. Denies rash. PHYSICAL EXAM: VITAL SIGNS: Reviewed GENERAL: Well-developed in no acute distress. HEENT: No sclera icterus. Extraocular movements grossly intact. Moist buccal mucosa. Head is atraumatic, normocephalic. No nasal drainage. ABDOMEN: Soft. Nondistended. tenderness palpation right upper quadrant with firmness noted it more laterally NEUROLOGIC: Alert and oriented. Cranial nerves II through XII grossly intact. LABORATORY DATA: WBC 6.7 Hgb 13.9 and platelets 249 Sodium 138 T 4.3 creatinine 0.65 Lactic acid 1.2 LFTs normal IMAGING: ultrasound results as stated above ASSESSMENT: 1. Anterior and inferior perihepatic fluid collection along the right liver lobe noted on US 2. Possible abdominal abscess PLAN: -Interventional radiology consulted for drainage of fluid collection. Apparently patient did receive Lovenox and aspirin and IR service is unable to perform drainage of fluid collection today. -continue antibiotics -Resume regular diet Physician Hand Tier note has been reviewed by physician. Signing provider agrees with the documented findings, assessment, and plan of care. Past Medical History Past Medical History: Diabetes Mellitus, Hyperlipidemia, Hypertension, Sleep Apnea/CPAP/BIPAP History of Any Multi-Drug Resistant Organisms: None Reported Past Surgical History: Bariatric Surgery, Cholecystectomy, Tonsillectomy Additional Past Surgical History / Comment(s): Erika N Y gastric bypass retinal detachment Past Anesthesia/Blood Transfusion Reactions: No Reported Reaction Past Psychological History: No Psychological Hx Reported Smoking Status: Never smoker Past Alcohol Use History: Occasional Additional Past Alcohol Use History / Comment(s): Stop smoking at the age 30 Past Drug Use History: None Reported - Past Family History Mother Family Medical History: Hyperlipidemia Medications and Allergies Home Medications Medication Instructions Recorded Confirmed Type Multivitamins, Thera [Multivitamin 1 tab PO DAILY 05/20/18 02/23/24 History (formulary)] Atorvastatin [Lipitor] 10 mg PO HS 03/15/22 02/23/24 History Amoxic-Pot Clav 875-125Mg 1 tab PO BID 1 Days #20 tab 03/19/22 02/23/24 Rx [Augmentin 875-125] Ferrous Sulfate [Feosol] 325 mg PO DAILY 02/23/24 02/23/24 History Lisinopril-Hctz 20-12.5 mg 1 tab PO DAILY 02/23/24 02/23/24 History [Zestoretic 20-12.5] Mupirocin 2% Oint [Bactroban 2% 1 applic TOPICAL TID 02/23/24 02/23/24 History Oint] Tirzepatide [Mounjaro] 7.5 mg SQ FINE 02/23/24 02/23/24 History Triamcinolone 0.1% Cream [Kenalog 1 applic TOPICAL BID 02/23/24 02/23/24 History 0.1% Cream] Zolpidem Tartrate [Ambien] 10 mg PO HS PRN 02/23/24 02/23/24 History Allergies Allergy/AdvReac Type Severity Reaction Status Date / Time No Known Allergies Allergy Verified 02/23/24 07:53 Surgical - Exam Vital Signs Temp Pulse Resp BP Pulse Ox 98.2 F 64 16 124/79 98 02/22/24 18:51 02/22/24 18:51 02/22/24 18:51 02/22/24 18:51 02/22/24 18:51 Results - Labs 02/22/24 19:51 02/22/24 19:51 Abnormal Lab Results - Last 24 Hours (Table) 02/22/24 Range/Units 19:51 Creatinine 0.65 L (0.66-1.25) mg/dL Diabetes panel 02/22/24 Range/Units 19:51 Sodium 138 (137-145) mmol/L Potassium 4.3 (3.5-5.1) mmol/L Chloride 103 (98-107) mmol/L Carbon Dioxide 28 (22-30) mmol/L BUN 12 (9-20) mg/dL Creatinine 0.65 L (0.66-1.25) mg/dL Glucose 89 (74-99) mg/dL Calcium 9.6 (8.4-10.2) mg/dL AST 30 (17-59) U/L ALT 20 (4-49) U/L Alkaline Phosphatase 67 (38-126) U/L Total Protein 7.2 (6.3-8.2) g/dL Albumin 4.4 (3.5-5.0) g/dL Calcium panel 02/22/24 Range/Units 19:51 Calcium 9.6 (8.4-10.2) mg/dL Albumin 4.4 (3.5-5.0) g/dL Pituitary panel 02/22/24 Range/Units 19:51 Sodium 138 (137-145) mmol/L Potassium 4.3 (3.5-5.1) mmol/L Chloride 103 (98-107) mmol/L Carbon Dioxide 28 (22-30) mmol/L BUN 12 (9-20) mg/dL Creatinine 0.65 L (0.66-1.25) mg/dL Glucose 89 (74-99) mg/dL Calcium 9.6 (8.4-10.2) mg/dL Adrenal panel 02/22/24 Range/Units 19:51 Sodium 138 (137-145) mmol/L Potassium 4.3 (3.5-5.1) mmol/L Chloride 103 (98-107) mmol/L Carbon Dioxide 28 (22-30) mmol/L BUN 12 (9-20) mg/dL Creatinine 0.65 L (0.66-1.25) mg/dL Glucose 89 (74-99) mg/dL Calcium 9.6 (8.4-10.2) mg/dL Total Bilirubin 0.9 (0.2-1.3) mg/dL AST 30 (17-59) U/L ALT 20 (4-49) U/L Alkaline Phosphatase 67 (38-126) U/L Total Protein 7.2 (6.3-8.2) g/dL Albumin 4.4 (3.5-5.0) g/dL
[2024-02-23] MEDS ORDERED: ACETAMINOPHEN TAB 325 MG TAB PO PRN (16:01)
--- NOTE | 2024-02-23 16:06 | P.PN ---
Subjective Progress Note Date: 02/23/24 Hospital course: Patient is a Treatment is an 58-year-old male with a past medical history of hypertension, hyperlipidemia, and diabetes mellitus. He presented to the emergency department with a chief complaint of right upper quadrant pain. Patient reports he has been experiencing these progressively worsening pains over the last 3 months and was following with his PCP outpatient who sent him for a computed tomography scan. He states he then received a call from his doctor telling him to go to the ER because the CT revealed an abdominal abscess, Upon arrival to our facility, patient underwent evaluation in the emergency department. Vital signs upon arrival show blood pressure 124/79, heart rate 64, respiratory rate 16, temp 98.2F, SpO2 98% on room air.Labs are completed and reviewed. CBC was unremarkable with WBC count of 6.7, hemoglobin of 13.9 and platelet count of 20 and 49,000. Coagulation profile is normal findings. BMP unremarkable. Blood glucose 89. Lactic acid 1.2. Liver profile unremarkable.Abdominal ultrasound was completed revealing an inferior . Perihepatic fluid collection measuring 8.0 x 5.9 x 3.3 cm along the right liver lobe. Physical exam: Vital signs reviewed and stable. General: Nontoxic, no distress and appears stated age. Derm: Skin warm and dry, normal coloration for ethnicity. Head: Atraumatic, normocephalic and symmetric. Eyes: EOMs intact, no lid lag, and anicteric sclera Mouth: no lip lesions, mucus membranes moist Cardiovascular: regular rate and rhythm with normal S1S2, no murmur, positive posterior tibial pulses bilaterally, and cap refill < 2 seconds. Lungs: Respirations even, regular, and unlabored on room air. Lungs CTA bilaterally, no rhonchi, no rales, no wheezing, and no accessory muscle usage. Abdominal: soft, Tenderness right upper quadrant/lower rib region, no guarding, no appreciable organomegaly Ext: ROM intact. No gross muscle atrophy, no edema, no contractures Neuro: Speech clear, face symmetrical and CN II-XII grossly intact with no noted focal neuro deficits Psych: Alert and oriented to person, place, time, and situation. Appropriate and pleasant affect. Assessment and Plan of Care: Intraperitoneal Perihepatic fluid collection, concening for abscess -Gen. surgery consulted, discussed case with general surgeon recommending consulted IR. -Interventional radiology consulted for drainage of Fluid Collection along with fluid cultures and cell count. -Symptomatic care and pain management With Tylenol 650 mg by mouth every 6 hours as needed for mild pain/fever and [place] 5/325 mg every 4 hours as needed for moderate pain. -Continue IV antibiotics with Zosyn 3.375 g every 8 hours. Diabetes mellitus -Blood glucose levels controlled at this time. -Patient placed on glycemic protocol with NovoLog sliding scale. Hypertension -Continue daily medication regimen with lisinopril/hydrochlorothiazide 2012.5 mg tablets daily. Hyperlipidemia -Continue daily medication regimen with atorvastatin 10 mg nightly. Update per IR...Pt cannot have drainage of fluid collection completed until Monday02/26/24 CODE STATUS: Full code DVT prophylaxis: CIRILO hoffman and SCDs, hold Lovenox and/or heparin pending completion of IR drainage Discussed with: Patient, RN, general surgery PA, and general surgeon Anticipated discharge date: Pending clinical course Anticipated discharge place: Home Patient was seen independently by Nurse Pracitioner. This document was prepared using [employer] dictation software. Please allow for errors in final expense agent, while rare they do occur. .Rod Perez NP rendered care for this patient independently, reviewed the findings and plan as documented in the note above. I did not physically speak with or examine the patient on this date. Objective - Vital Signs Vital signs: Vital Signs Temp 97.8 F 02/23/24 06:13 Pulse 78 02/23/24 06:13 Resp 15 02/23/24 06:13 BP 123/77 02/23/24 06:13 Pulse Ox 99 02/23/24 06:13 FiO2 Intake & Output 02/22/24 02/23/24 02/23/24 18:59 06:59 18:59 Weight 102.058 kg - Labs CBC & Chem 7: 02/22/24 19:51 02/22/24 19:51 Labs: Abnormal Lab Results - Last 24 Hours (Table) 02/22/24 Range/Units 19:51 Creatinine 0.65 L (0.66-1.25) mg/dL
[2024-02-23 16:41] LABS: Glucose,Whole Blood 241 mg/dL (70-110)
[2024-02-23 20:51] LABS: Glucose,Whole Blood 62 mg/dL (70-110)
[2024-02-23] MEDS: ATORVASTATIN 10 MG TAB PO SCH (21:49)
[2024-02-23] MEDS: ZOLPIDEM 5 MG TAB PO PRN (21:49)
[2024-02-23 21:50] LABS: Glucose,Whole Blood 98 mg/dL (70-110)
[2024-02-24 06:09] LABS: Glucose,Whole Blood 92 mg/dL (70-110)
[2024-02-24 09:39] LABS: HCT 43.7 % (39.6-50.0); HGB 14.3 g/dL (13.0-17.0); MCH 30.8 pg (27.0-32.0); MCHC 32.7 g/dL (32.0-37.0); MCV 94.2 FL (80.0-97.0); Mean Platelet Volume 10.7 FL (9.5-12.2); NRBC Per 100 WBC 0 X 10*3/uL (0.00-0.01); Platelet Count 240 X 10*3/uL (140-440); RBC 4.64 X 10*6/uL (4.40-5.60); RDW 12.8 % (11.5-14.5)
[2024-02-24 09:54] LABS: BUN/Creat Ratio 14.33 Ratio (12.00-20.00); Blood Urea Nitrogen 12.9 mg/dL (9.0-27.0); Calcium 9.4 mg/dL (8.7-10.3); Carbon Dioxide 27.4 mmol/L (21.6-31.8); Chloride 102 mmol/L (96-109); Glucose 93 mg/dL (70-110); Magnesium 2.1 mg/dL (1.5-2.4); Potassium 4.4 mmol/L (3.5-5.5); Sodium 140 mmol/L (135-145)
--- NOTE | 2024-02-24 10:49 | P.PN ---
Subjective Progress Note Date: 02/24/24 Patient is doing well today, waiting for his IR guided drainage of his abscess. He reports some chills last night, otherwise denies fevers. He is having small stools, tolerating a diet. His pain is about the same, decently controlled. He is ambulating well independently. Remains on Zosyn. Gen: In NAD, non-toxic HEENT: normocephalic, atraumatic, hearing acuity is intant, mucous membranes moist CVS: perfusing all extremities well, no pitting edema, Respiratory: symmetric chest expansion, no accessory muscle use, GI: soft, NTTP, ND, : no suprapubic tenderness, no CVA tenderness MSK/Derm: no rashes, cyanosis Neuro: CN II-XII intact, no motor weakness, Psych: cooperative, euthymic mood, judgment and insight is intact Hospital course: Patient is a Treatment is an 58-year-old male with a past medical history of hypertension, hyperlipidemia, and diabetes mellitus. He presented to the e mergency department with a chief complaint of right upper quadrant pain. Patient reports he has been experiencing these progressively worsening pains over the last 3 months and was following with his PCP outpatient who sent him for a computed tomography scan. He states he then received a call from his doctor telling him to go to the ER because the CT revealed an abdominal abscess, Upon arrival to our facility, patient underwent evaluation in the emergency department. Vital signs upon arrival show blood pressure 124/79, heart rate 64, respiratory rate 16, temp 98.2F, SpO2 98% on room air.Labs are completed and reviewed. CBC was unremarkable with WBC count of 6.7, hemoglobin of 13.[address] atelet count of 20 and 49,000. Coagulation profile is normal findings. BMP unremarkable. Blood glucose 89. Lactic acid 1.2. Liver profile unremarkable.Abdominal ultrasound was completed revealing an inferior . Perihepatic fluid collection measuring 8.0 x 5.9 x 3.3 cm along the right liver lobe. Assessment and Plan of Care: Intraperitoneal Perihepatic fluid collection, concening for abscess -Gen. surgery consulted, discussed case with general surgeon recommending consulted IR. -Interventional radiology consulted for drainage of Fluid Collection along with fluid cultures and cell count, will be completed on Monday -Symptomatic care and pain management With Tylenol 650 mg by mouth every 6 hours as needed for mild pain/fever, Toradol 50 mg IV every 6 hours as needed and [place] 5/325 mg every 4 hours as needed for moderate pain. -Continue IV antibiotics with Zosyn 3.375 g every 8 hours. Diabetes mellitus -Blood glucose levels controlled at this time. -Patient placed on glycemic protocol with NovoLog sliding scale. Hypertension -Continue daily medication regimen with lisinopril/hydrochlorothiazide 2012.5 mg tablets daily. Hyperlipidemia -Continue daily medication regimen with atorvastatin 10 mg nightly. CODE STATUS: Full code DVT prophylaxis: CIRILO hoffman and THADDEUSs Anticipated discharge date: Pending clinical course Anticipated discharge place: Home Objective - Vital Signs Vital signs: Vital Signs Temp 97.7 F 02/24/24 06:54 Pulse 59 L 02/24/24 06:54 Resp 18 02/24/24 06:54 BP 137/84 02/24/24 06:54 Pulse Ox 97 02/24/24 06:54 FiO2 Intake & Output 02/23/24 02/24/24 02/24/24 18:59 06:59 18:59 Weight 102.058 kg Other: Voiding Method Toilet Toilet # Voids 2 2 - Labs CBC & Chem 7: 02/24/24 05:49 02/24/24 05:49 Labs: Abnormal Lab Results - Last 24 Hours (Table) 02/23/24 02/23/24 Range/Units 16:40 20:49 POC Glucose (mg/dL) 241 H 62 L (70-110) mg/dL
[2024-02-24 11:36] LABS: Glucose,Whole Blood 99 mg/dL (70-110)
--- NOTE | 2024-02-24 16:35 | P.PN ---
Progress Note - Text Progress Note Date: 02/24/24 CHIEF COMPLAINT: Abdominal Pain HISTORY OF PRESENT ILLNESS: NAEO. Pain is controlled. Denies nausea and vomiting. PHYSICAL EXAM: VITAL SIGNS: Reviewed. GENERAL: no acute distress. HEENT: no scleral icterus ABDOMEN: Soft. mildly distended. Nontender. skin: Jaundiced ASSESSMENT: 1. Anterior and inferior perihepatic fluid collection along the right liver lobe noted on US 2. Possible abdominal abscess PLAN: -Interventional Radiology consulted for drainage of fluid collection. -continue antibiotics -Regular diet
[2024-02-24 16:37] LABS: Glucose,Whole Blood 147 mg/dL (70-110)
[2024-02-24 20:46] LABS: Glucose,Whole Blood 94 mg/dL (70-110)
[2024-02-25] MEDS: HYDROcodone/APAP 5-325MG 1 EACH TAB PO PRN (04:50)
[2024-02-25 06:37] LABS: Glucose,Whole Blood 117 mg/dL (70-110)
[2024-02-25 09:25] LABS: Basophils # (A) 0.05 X 10*3/uL (0.00-0.10); Basophils % (A) 0.7 %; Eosinophils # (A) 0.23 X 10*3/uL (0.04-0.35); Eosinophils % (A) 3.2 %; HCT 43.3 % (39.6-50.0); HGB 14.5 g/dL (13.0-17.0); Lymphocytes # (A) 2.12 X 10*3/uL (0.90-5.00); Lymphocytes % (A) 29.7 %; MCH 31.2 pg (27.0-32.0); MCHC 33.5 g/dL (32.0-37.0); MCV 93.1 FL (80.0-97.0); Monocytes % (A) 9.8 %; NRBC Per 100 WBC 0 X 10*3/uL (0.00-0.01); Neutrophils # (A) 4.04 X 10*3/uL (1.80-7.70); Neutrophils % (A) 56.5 %; Platelet Count 237 X 10*3/uL (140-440); RBC 4.65 X 10*6/uL (4.40-5.60); RDW 12.8 % (11.5-14.5); WBC 7.15 X 10*3/uL (4.50-10.00)
[2024-02-25 09:39] LABS: BUN/Creat Ratio 12.67 Ratio (12.00-20.00); Blood Urea Nitrogen 11.4 mg/dL (9.0-27.0); Calcium 9.2 mg/dL (8.7-10.3); Carbon Dioxide 24.5 mmol/L (21.6-31.8); Chloride 105 mmol/L (96-109); Glucose 101 mg/dL (70-110); Magnesium 2.1 mg/dL (1.5-2.4); Potassium 4.2 mmol/L (3.5-5.5); Sodium 142 mmol/L (135-145)
--- NOTE | 2024-02-25 10:15 | P.PN ---
Subjective Progress Note Date: 02/25/24 Patient states he feels about the same. He has minimal complaints of pain. He has had no fevers. On exam vital signs appear stable. Abdomen is soft. Patient is awaiting interventional radiology drainage of his right upper quadrant fluid collection. Objective - Vital Signs Vital signs: Vital Signs Temp 97.5 F L 02/25/24 07:17 Pulse 93 02/25/24 07:17 Resp 18 02/25/24 07:17 BP 114/74 02/25/24 07:17 Pulse Ox 94 L 02/25/24 07:17 FiO2 Intake & Output 02/24/24 02/25/24 02/25/24 18:59 06:59 18:59 Other: Voiding Method Toilet # Voids 4 - Labs CBC & Chem 7: 02/25/24 04:17 02/25/24 04:17 Labs: Abnormal Lab Results - Last 24 Hours (Table) 02/24/24 02/25/24 02/25/24 Range/Units 16:35 04:17 06:29 Anion Gap 12.50 H (4.00-12.00) mmol/L POC Glucose (mg/dL) 147 H 117 H (70-110) mg/dL
[2024-02-25 10:59] LABS: Glucose,Whole Blood 76 mg/dL (70-110)
--- NOTE | 2024-02-25 11:46 | P.PN ---
Subjective Progress Note Date: 02/25/24 Patient is doing well today, no complaints. Pending IR guided drainage tomorrow AM. Gen: In NAD, non-toxic HEENT: normocephalic, atraumatic, hearing acuity is intant, mucous membranes moist CVS: perfusing all extremities well, no pitting edema, Respiratory: symmetric chest expansion, no accessory muscle use, GI: soft, NTTP, ND, : no suprapubic tenderness, no CVA tenderness MSK/Derm: no rashes, cyanosis Neuro: CN II-XII intact, no motor weakness, Psych: cooperative, euthymic mood, judgment and insight is intact Hospital course: Patient is a Treatment is an 58-year-old male with a past medical history of hypertension, hyperlipidemia, and diabetes mellitus. He presented to the emergency department with a chief complaint of right upper quadrant pain. Patient reports he has been experiencing these progressively worsening pains over the last 3 months and was following with his PCP outpatient who sent him for a computed tomography scan. He states he then received a call from his doctor telling him to go to the ER because the CT revealed an abdominal abscess, Upon arrival to our facility, patient underwent evaluation in the emergency department. Vital signs upon arrival show blood pressure 124/79, heart rate 64, respiratory rate 16, temp 98.2F, SpO2 98% on room air.Labs are completed and reviewed. CBC was unremarkable with WBC count of 6.7, hemoglobin of 13.9 and platelet count of 20 and 49,000. Coagulation profile is normal findings. BMP unremarkable. Blood glucose 89. Lactic acid 1.2. Liver profile unremarkable.Abdominal ultrasound was completed revealing an inferior . Perihepatic fluid collection measuring 8.0 x 5.9 x 3.3 cm along the right liver lobe. Assessment and Plan of Care: Intraperitoneal Perihepatic fluid collection, concening for abscess -Gen. surgery consulted, discussed case with general surgeon recommending consulted IR. -Interventional radiology consulted for drainage of Fluid Collection along with fluid cultures and cell count, will be completed on Monday -Symptomatic care and pain management With Tylenol 650 mg by mouth every 6 hours as needed for mild pain/fever, Toradol 50 mg IV every 6 hours as needed and [place] 5/325 mg every 4 hours as needed for moderate pain. -Continue IV antibiotics with Zosyn 3.375 g every 8 hours. Diabetes mellitus -Blood glucose levels controlled at this time. -Patient placed on glycemic protocol with NovoLog sliding scale. Hypertension -Continue daily medication regimen with lisinopril/hydrochlorothiazide 2012.5 mg tablets daily. Hyperlipidemia -Continue daily medication regimen with atorvastatin 10 mg nightly. CODE STATUS: Full code DVT prophylaxis: CIRILO hoffman and SCDs Anticipated discharge date: Pending clinical course Anticipated discharge place: Home Objective - Vital Signs Vital signs: Vital Signs Temp 97.5 F L 02/25/24 07:17 Pulse 93 02/25/24 07:17 Resp 18 02/25/24 07:17 BP 114/74 02/25/24 07:17 Pulse Ox 94 L 02/25/24 07:17 FiO2 Intake & Output 02/24/24 02/25/24 02/25/24 18:59 06:59 18:59 Other: Voiding Method Toilet # Voids 4 - Labs CBC & Chem 7: 02/25/24 04:17 02/25/24 04:17 Labs: Abnormal Lab Results - Last 24 Hours (Table) 02/24/24 02/25/24 02/25/24 Range/Units 16:35 04:17 06:29 Anion Gap 12.50 H (4.00-12.00) mmol/L POC Glucose (mg/dL) 147 H 117 H (70-110) mg/dL
[2024-02-25 16:07] LABS: Glucose,Whole Blood 87 mg/dL (70-110)
[2024-02-25 21:32] LABS: Glucose,Whole Blood 127 mg/dL (70-110)
[2024-02-26 05:48] LABS: Glucose,Whole Blood 112 mg/dL (70-110)
[2024-02-26 09:07] LABS: BUN/Creat Ratio 10.55 Ratio (12.00-20.00); Blood Urea Nitrogen 11.6 mg/dL (9.0-27.0); Calcium 9.2 mg/dL (8.7-10.3); Carbon Dioxide 27.1 mmol/L (21.6-31.8); Chloride 104 mmol/L (96-109); Glucose 95 mg/dL (70-110); Potassium 4.6 mmol/L (3.5-5.5); Sodium 141 mmol/L (135-145)
[2024-02-26 09:08] LABS: Magnesium 2.1 mg/dL (1.5-2.4)
[2024-02-26 09:20] LABS: Basophils # (A) 0.05 X 10*3/uL (0.00-0.10); Basophils % (A) 0.7 %; Eosinophils # (A) 0.26 X 10*3/uL (0.04-0.35); Eosinophils % (A) 3.7 %; HGB 13.9 g/dL (13.0-17.0); Lymphocytes # (A) 2.41 X 10*3/uL (0.90-5.00); Lymphocytes % (A) 34.1 %; MCH 31.2 pg (27.0-32.0); MCHC 33.1 g/dL (32.0-37.0); MCV 94.4 FL (80.0-97.0); Mean Platelet Volume 11.1 FL (9.5-12.2); Monocytes # (A) 0.68 X 10*3/uL (0.20-1.00); Monocytes % (A) 9.6 %; NRBC Per 100 WBC 0 X 10*3/uL (0.00-0.01); Neutrophils # (A) 3.64 X 10*3/uL (1.80-7.70); Neutrophils % (A) 51.6 %; Platelet Count 221 X 10*3/uL (140-440); RBC 4.45 X 10*6/uL (4.40-5.60); RDW 12.7 % (11.5-14.5); WBC 7.06 X 10*3/uL (4.50-10.00)
[2024-02-26] MEDS ORDERED: ALPRAZolam 0.25 MG TAB PO PRN (10:07)
--- NOTE | 2024-02-26 10:09 | P.PN ---
Subjective Progress Note Date: 02/26/24 Patient is doing well today, no complaints. Plan is to proceed with IR guided biopsy drainage Gen: In NAD, non-toxic HEENT: normocephalic, atraumatic, hearing acuity is intant, mucous membranes moist CVS: perfusing all extremities well, no pitting edema, Respiratory: symmetric chest expansion, no accessory muscle use, GI: soft, NTTP, ND, : no suprapubic tenderness, no CVA tenderness MSK/Derm: no rashes, cyanosis Neuro: CN II-XII intact, no motor weakness, Psych: cooperative, euthymic mood, judgment and insight is intact Hospital course: Patient is a Treatment is an 58-year-old male with a past medical history of hypertension, hyperlipidemia, and diabetes mellitus. He presented to the e mergency department with a chief complaint of right upper quadrant pain. Patient reports he has been experiencing these progressively worsening pains over the last 3 months and was following with his PCP outpatient who sent him for a computed tomography scan. He states he then received a call from his doctor telling him to go to the ER because the CT revealed an abdominal abscess, Upon arrival to our facility, patient underwent evaluation in the emergency department. Vital signs upon arrival show blood pressure 124/79, heart rate 64, respiratory rate 16, temp 98.2F, SpO2 98% on room air.Labs are completed and reviewed. CBC was unremarkable with WBC count of 6.7, hemoglobin of 13.[address] atelet count of 20 and 49,000. Coagulation profile is normal findings. BMP unremarkable. Blood glucose 89. Lactic acid 1.2. Liver profile unremarkable.Abdominal ultrasound was completed revealing an inferior . Perihepatic fluid collection measuring 8.0 x 5.9 x 3.3 cm along the right liver lobe. Assessment and Plan of Care: Intraperitoneal Perihepatic fluid collection, concening for abscess -Gen. surgery consulted, discussed case with general surgeon recommending consulted IR. -Interventional radiology consulted for drainage of Fluid Collection along with fluid cultures and cell count, will be completed on Monday -Symptomatic care and pain management With Tylenol 650 mg by mouth every 6 hours as needed for mild pain/fever, Toradol 50 mg IV every 6 hours as needed and [place] 5/325 mg every 4 hours as needed for moderate pain. -Continue IV antibiotics with Zosyn 3.375 g every 8 hours. Diabetes mellitus -Blood glucose levels controlled at this time. -Patient placed on glycemic protocol with NovoLog sliding scale. Hypertension -Continue daily medication regimen with lisinopril/hydrochlorothiazide 2012.5 mg tablets daily. Hyperlipidemia -Continue daily medication regimen with atorvastatin 10 mg nightly. CODE STATUS: Full code DVT prophylaxis: CIRILO hoffman and SCDs Anticipated discharge date: Pending clinical course Anticipated discharge place: Home Objective - Vital Signs Vital signs: Vital Signs Temp 98.3 F 02/26/24 07:28 Pulse 65 02/26/24 08:08 Resp 16 02/26/24 08:08 BP 113/64 02/26/24 07:28 Pulse Ox 95 02/26/24 07:28 FiO2 Intake & Output 02/25/24 02/26/24 02/26/24 18:59 06:59 18:59 Other: Voiding Method Toilet # Voids 2 - Labs CBC & Chem 7: 02/26/24 04:40 02/26/24 04:40 Labs: Abnormal Lab Results - Last 24 Hours (Table) 02/25/24 02/26/24 02/26/24 Range/Units 21:30 04:40 05:46 BUN/Creatinine Ratio 10.55 L (12.00-20.00) Ratio POC Glucose (mg/dL) 127 H 112 H (70-110) mg/dL
--- NOTE | 2024-02-26 11:20 | US ---
ULTRASOUND GUIDED SOFT TISSUE FLUID COLLECTION ASPIRATION: CLINICAL HISTORY: Right flank intramuscular fluid collection FINDINGS: The procedure was explained to the patient. The risks, complications, benefits and alternatives were discussed and any questions were answered. Informed consent was obtained. Patient was placed supin e on the ultrasound table and prepped and draped in the usual sterile fashion. Utilizing a 18 gauge needle, access was made into the right fluid collection aspiration approximately 17 cc of purulent ma terial. No residual fluid collection for drainage tube insertion. Patient was stable throughout the procedure. Pathology is pending. All elements of maximal barrier technique were utilized. IMPRESSION: 1. Successful ultrasound guided FNA right sided flank fluid collection with no residual collection p ost aspiration.
--- NOTE | 2024-02-26 11:49 | P.PN ---
Subjective Progress Note Date: 02/26/24 CHIEF COMPLAINT: RUQ pain HISTORY OF PRESENT ILLNESS: Patient continues to report the same right upper qu adrant pain. He is scheduled for drain placement by IR service. Afebrile. WBC 7.06 PHYSICAL EXAM: VITAL SIGNS: Reviewed. GENERAL: Well-developed in no acute distress. Abdomen: Tenderness right upper quadrant NEUROLOGIC: Alert and oriented. Cranial nerves II through XII grossly intact. ASSESSMENT: 1. Right upper quadrant fluid collection PLAN: -Patient scheduled for drain placement by IR service -Continue antibiotics per infectious disease Physician [facility] Mortician note has been reviewed by physician. Signing provider agrees with the documented findings, assessment, and plan of care. Objective - Vital Signs Vital signs: Vital Signs Temp 98.3 F 02/26/24 07:28 Pulse 65 02/26/24 08:08 Resp 16 02/26/24 08:08 BP 113/64 02/26/24 07:28 Pulse Ox 95 02/26/24 07:28 FiO2 Intake & Output 02/25/24 02/26/24 02/26/24 18:59 06:59 18:59 Other: Voiding Method Toilet # Voids 2 - Labs CBC & Chem 7: 02/26/24 04:40 02/26/24 04:40 Labs: Abnormal Lab Results - Last 24 Hours (Table) 02/25/24 02/26/24 02/26/24 Range/Units 21:30 04:40 05:46 BUN/Creatinine Ratio 10.55 L (12.00-20.00) Ratio POC Glucose (mg/dL) 127 H 112 H (70-110) mg/dL
[2024-02-26 11:51] LABS: Glucose,Whole Blood 99 mg/dL (70-110)
[2024-02-26 16:36] LABS: Glucose,Whole Blood 122 mg/dL (70-110)
[2024-02-26 20:36] LABS: Glucose,Whole Blood 156 mg/dL (70-110)
[2024-02-27 06:12] LABS: Glucose,Whole Blood 87 mg/dL (70-110)
[2024-02-27 07:27] VITALS: TEMP 97.9
[2024-02-27 10:06] VITALS: RESP 16
--- NOTE | 2024-02-27 10:23 | P.PN ---
Subjective Progress Note Date: 02/27/24 CHIEF COMPLAINT: RUQ pain HISTORY OF PRESENT ILLNESS: Patient is status post aspiration of 17 cc of purul ent fluid from the fluid collection in the right upper quadrant of the abdomen by IR service. Patient reports decrease in pain. He reports that the area is softer. He is afebrile. He wants to be discharged home. Cultures are pending. Afebrile. PHYSICAL EXAM: VITAL SIGNS: Reviewed. GENERAL: Well-developed in no acute distress. Abdomen: Mild discomfort with palpation right upper quadrant NEUROLOGIC: Alert and oriented. Cranial nerves II through XII grossly intact. ASSESSMENT: 1. Right upper quadrant fluid collection PLAN: -No surgical intervention planned -Antibiotics per medicine service -Patient can be discharged from surgical standpoint Physician Flagsetter note has been reviewed by physician. Signing provider agrees with the documented findings, assessment, and plan of care. Objective - Vital Signs Vital signs: Vital Signs Temp 97.9 F 02/27/24 07:26 Pulse 64 02/27/24 09:59 Resp 16 02/27/24 09:59 BP 120/79 02/27/24 07:26 Pulse Ox 95 02/27/24 07:26 FiO2 Intake & Output 02/26/24 02/27/24 02/27/24 18:59 06:59 18:59 Other: Voiding Method Toilet Toilet Toilet # Voids 7 2 # Bowel Movements 1 - Labs CBC & Chem 7: 02/26/24 04:40 02/26/24 04:40 Labs: Abnormal Lab Results - Last 24 Hours (Table) 02/26/24 02/26/24 Range/Units 16:34 20:34 POC Glucose (mg/dL) 122 H 156 H (70-110) mg/dL
[2024-02-27 11:22] LABS: Glucose,Whole Blood 87 mg/dL (70-110)
--- NOTE | 2024-02-27 11:49 | P.DS ---
Providers Date of admission: 02/22/24 21:45 Expected date of discharge: 02/27/24 Attending physician: Jasiel Cordoba MD Consults: 02/23/24 08:00 Consult Physician Routine Consulting Provider: Chance Mohan Consult Reason/Comments: abdominal abscess Do you want consulting provider notified?: Already Contacted Primary care physician: Sd Suero [facility] Course: Discharge Diagnosis: Intraperitoneal Perihepatic fluid collection. Underwent drainage of fluid collection by interventional radiology on 02/26/2024. Fluid culture samples were sent to lab for analysis. They are currently pending however patient adamant about discharge as he has previously scheduled plans that he states he is unable to change. Patient being discharged home with oral antibiotic Augmentin 875/325 mg every 12 hours x 10 additional days. I discussed with the patient that he will have to follow-up outpatient with general surgery next week to receive his fluid culture results and to ensure he is on the appropriate antibiotic regimen. Pt to follow-up outpatient with PCP and general surgeon as discussed. Diabetes mellitus. Blood glucose levels controlled throughout hospitalization. Patient to resume Mounjaro 7.5 mg subcu weekly. Hypertension. Continue daily medication regimen with lisinopril/hydrochlorothiazide 2012.5 mg tablets daily. Hyperlipidemia. Continue daily medication regimen with atorvastatin 10 mg nightly. Hospital Course: Patient is a Treatment is an 58-year-old male with a past medical history of hypertension, hyperlipidemia, and diabetes mellitus. He presented to the emergency department with a chief complaint of right upper quadrant pain. Patient reports he has been experiencing these progressively worsening pains over the last 3 months and was following with his PCP outpatient who sent him for a computed tomography scan. He states he then received a call from his doctor telling him to go to the ER because the CT revealed an abdominal abscess, Upon arrival to our facility, patient underwent evaluation in the emergency department. Vital signs upon arrival show blood pressure 124/79, heart rate 64, respiratory rate 16, temp 98.2F, SpO2 98% on room air.Labs are completed and reviewed. CBC was unremarkable with WBC count of 6.7, hemoglobin of 13.9 and platelet count of 20 and 49,000. Coagulation profile is normal findings. BMP unremarkable. Blood glucose 89. Lactic acid 1.2. Liver profile unremarkable.Abdominal ultrasound was completed revealing an inferior . Perihepatic fluid collection measuring 8.0 x 5.9 x 3.3 cm along the right liver lobe. Patient was admitted under our services with consultation to general surgery and interventional radiology. He underwent drainage of fluid collection by interventional radiology on 02/26/2024. Fluid culture samples were sent to lab for analysis. They are currently pending and not available at time of discharge, however patient adamant about discharge as he has previously scheduled plans that he states he is unable/unwilling to change. Patient was cleared by general surgery for discharge and appears medically stable at this time. He is being discharged home with oral antibiotic Augmentin 875/325 mg every 12 hours x 10 additional days. I discussed with the patient that he will have to follow-up outpatient with general surgery next week to receive his fluid culture results and to ensure he is on the appropriate antibiotic regimen. Pt to follow-up outpatient with PCP and general surgeon as discussed. Activity restrictions were written in discharge instructions. Physical exam: Vital signs reviewed and stable. General: Nontoxic, no distress and appears stated age. Derm: Skin warm and dry, normal coloration for ethnicity. Head: Atraumatic, normocephalic and symmetric. Eyes: EOMs intact, no lid lag, and anicteric sclera Mouth: no lip lesions, mucus membranes moist Cardiovascular: regular rate and rhythm with normal S1S2, no murmur, positive posterior tibial pulses bilaterally, and cap refill < 2 seconds. Lungs: Respirations even, regular, and unlabored on room air. Lungs CTA bilaterally, no rhonchi, no rales, no wheezing, and no accessory muscle usage. Abdominal: soft, tender to palpation, no erythema or drainage around IR drainage site. No guarding, no appreciable organomegaly Ext: ROM intact. No gross muscle atrophy, no edema, no contractures Neuro: Speech clear, face symmetrical and CN II-XII grossly intact with no noted focal neuro deficits Psych: Alert and oriented to person, place, time, and situation. Appropriate and pleasant affect. A total of 39 minutes of time were spent preparing this complex discharge summary. Pt was discharged on 02/27/2024 at 11:48 AM Patient was seen independently by Nurse Practitioner. This document was prepared using numberFire dictation software. Please allow for errors in tower loader operator while rare they do occur. Patient Condition at Discharge: Stable Plan - Discharge Summary Discharge Rx Participant: No New Discharge Prescriptions: New Amoxic-Pot Clav 875-125Mg [Augmentin 875-125] 1 tab PO BID 10 Days #20 tab HYDROcodone/APAP 5-325MG [Barrington 5-325] 1 each PO Q4HR PRN #18 tab PRN Reason: Moderate Pain (Scale 4 To 6) Continue Multivitamins, Thera [Multivitamin (formulary)] 1 tab PO DAILY Lisinopril-Hctz 20-12.5 mg [Zestoretic 20-12.5] 1 tab PO DAILY Triamcinolone 0.1% Cream [Kenalog 0.1% Cream] 1 applic TOPICAL BID Tirzepatide [Mounjaro] 7.5 mg SQ FINE Mupirocin 2% Oint [Bactroban 2% Oint] 1 applic TOPICAL TID Zolpidem Tartrate [Ambien] 10 mg PO HS PRN PRN Reason: Insomnia Atorvastatin [Lipitor] 10 mg PO HS Ferrous Sulfate [Iron (65 MG Elemental)] 325 mg PO DAILY Discontinued Amoxic-Pot Clav 875-125Mg [Augmentin 875-125] 1 tab PO BID 1 Days #20 tab Discharge Medication List Multivitamins, Thera [Multivitamin (formulary)] 1 tab PO DAILY 05/20/18 [History] Atorvastatin [Lipitor] 10 mg PO HS 03/15/22 [History] Ferrous Sulfate [Iron (65 MG Elemental)] 325 mg PO DAILY 02/23/24 [History] Lisinopril-Hctz 20-12.5 mg [Zestoretic 20-12.5] 1 tab PO DAILY 02/23/24 [History] Mupirocin 2% Oint [Bactroban 2% Oint] 1 applic TOPICAL TID 02/23/24 [History] Tirzepatide [Mounjaro] 7.5 mg SQ FINE 02/23/24 [History] Triamcinolone 0.1% Cream [Kenalog 0.1% Cream] 1 applic TOPICAL BID 02/23/24 [History] Zolpidem Tartrate [Ambien] 10 mg PO HS PRN 02/23/24 [History] Amoxic-Pot Clav 875-125Mg [Augmentin 875-125] 1 tab PO BID 10 Days #20 tab 02/27/24 [Rx] HYDROcodone/APAP 5-325MG [Barrington 5-325] 1 each PO Q4HR PRN #18 tab 02/27/24 [Rx] Follow up Appointment(s)/Referral(s): Sd Suero MD [Primary Care Provider] - 1-2 days (office not answering Please call to schedule appointment ) Chance Mohan MD [STAFF PHYSICIAN] - 03/05/24 3:30 pm Activity/Diet/Wound Care/Special Instructions: Activity: As tolerated. No lifting > 10 lbs until follow up with your general surgeon. Take breaks as needed. You may shower but no soaking in tub or swimming. Diet: Heart healthy and carb consistent diet. Avoid salts, or foods with hidden salts such as canned or boxed foods and frozen dinners. Extra salt makes your heart work harder and traps the fluid in your body for longer. Special Instructions: Take all of your medications as directed and remember to keep all of your doctor's appointments and follow-up as needed. Have a safe and wonderful vacation. Remember to take it easy!! Fluid culture results are not available at time of discharge, pt being discharged prior to results of fluid samples per his request/demand secondary to previously scheduled vacation plans that pt states he cannot miss and will not reschedule. Pt to follow up with PCP and general surgeon for these results. Thank you for allowing us to participate in your care, it was truly a pleasure having you for our patient!!! . Discharge Disposition: HOME SELF-CARE
--- NOTE | 2024-02-27 11:59 | P.DS ---
Providers Date of admission: 02/22/24 21:45 Expected date of discharge: 02/27/24 Attending physician: Jasiel Cordoba MD Consults: 02/23/24 08:00 Consult Physician Routine Consulting Provider: Chance Mohan Consult Reason/Comments: abdominal abscess Do you want consulting provider notified?: Already Contacted Primary care physician: Sd Ram Pio [facility] Course: Hospital course: Patient is a Treatment is an 58-year-old male with a past medical history of hypertension, hyperlipidemia, and diabetes mellitus. He presented to the emergency department with a chief complaint of right upper quadrant pain. Patient reports he has been experiencing these progressively worsening pains over the last 3 months and was following with his PCP outpatient who sent him for a computed tomography scan. He states he then received a call from his doctor telling him to go to the ER because the CT revealed an abdominal abscess, Upon arrival to our facility, patient underwent evaluation in the emergency department. Vital signs upon arrival show blood pressure 124/79, heart rate 64, respiratory rate 16, temp 98.2F, SpO2 98% on room air.Labs are completed and reviewed. CBC was unremarkable with WBC count of 6.7, hemoglobin of 13.9 and platelet count of 20 and 49,000. Coagulation profile is normal findings. BMP unremarkable. Blood glucose 89. Lactic acid 1.2. Liver profile unremarkable.Abdominal ultrasound was completed revealing an inferior . Perihepatic fluid collection measuring 8.0 x 5.9 x 3.3 cm along the right liver lobe. Physical exam: Vital signs reviewed and stable. General: Nontoxic, no distress and appears stated age. Derm: Skin warm and dry, normal coloration for ethnicity. Head: Atraumatic, normocephalic and symmetric. Eyes: EOMs intact, no lid lag, and anicteric sclera Mouth: no lip lesions, mucus membranes moist Cardiovascular: regular rate and rhythm with normal S1S2, no murmur, positive posterior tibial pulses bilaterally, and cap refill < 2 seconds. Lungs: Respirations even, regular, and unlabored on room air. Lungs CTA bilaterally, no rhonchi, no rales, no wheezing, and no accessory muscle usage. Abdominal: soft, Tenderness right upper quadrant/lower rib region, no guarding, no appreciable organomegaly Ext: ROM intact. No gross muscle atrophy, no edema, no contractures Neuro: Speech clear, face symmetrical and CN II-XII grossly intact with no noted focal neuro deficits Psych: Alert and oriented to person, place, time, and situation. Appropriate and pleasant affect. Assessment and Plan of Care: Intraperitoneal Perihepatic fluid collection, concening for abscess -Gen. surgery consulted, discussed case with general surgeon recommending consulted IR. -Interventional radiology consulted for drainage of Fluid Collection along with fluid cultures and cell count. -Symptomatic care and pain management With Tylenol 650 mg by mouth every 6 hours as needed for mild pain/fever and [place] 5/325 mg every 4 hours as needed for moderate pain. -Continue IV antibiotics with Zosyn 3.375 g every 8 hours. Diabetes mellitus -Blood glucose levels controlled at this time. -Patient placed on glycemic protocol with NovoLog sliding scale. Hypertension -Continue daily medication regimen with lisinopril/hydrochlorothiazide 2012.5 mg tablets daily. Hyperlipidemia -Continue daily medication regimen with atorvastatin 10 mg nightly. Patient Condition at Discharge: Stable Plan - Discharge Summary Discharge Rx Participant: No New Discharge Prescriptions: New Amoxic-Pot Clav 875-125Mg [Augmentin 875-125] 1 tab PO BID 10 Days #20 tab HYDROcodone/APAP 5-325MG [[place]rc[place] 5-325] 1 each PO Q4HR PRN #18 tab PRN Reason: Moderate Pain (Scale 4 To 6) Continue Multivitamins, Thera [Multivitamin (formulary)] 1 tab PO DAILY Lisinopril-Hctz 20-12.5 mg [Zestoretic 20-12.5] 1 tab PO DAILY Triamcinolone 0.1% Cream [Kenalog 0.1% Cream] 1 applic TOPICAL BID Tirzepatide [Mounjaro] 7.5 mg SQ FINE Mupirocin 2% Oint [Bactroban 2% Oint] 1 applic TOPICAL TID Zolpidem Tartrate [Ambien] 10 mg PO HS PRN PRN Reason: Insomnia Atorvastatin [Lipitor] 10 mg PO HS Ferrous Sulfate [Iron (65 MG Elemental)] 325 mg PO DAILY Discontinued Amoxic-Pot Clav 875-125Mg [Augmentin 875-125] 1 tab PO BID 1 Days #20 tab Discharge Medication List Multivitamins, Thera [Multivitamin (formulary)] 1 tab PO DAILY 05/20/18 [H istory] Atorvastatin [Lipitor] 10 mg PO HS 03/15/22 [History] Ferrous Sulfate [Iron (65 MG Elemental)] 325 mg PO DAILY 02/23/24 [History] Lisinopril-Hctz 20-12.5 mg [Zestoretic 20-12.5] 1 tab PO DAILY 02/23/24 [History] Mupirocin 2% Oint [Bactroban 2% Oint] 1 applic TOPICAL TID 02/23/24 [History] Tirzepatide [Mounjaro] 7.5 mg SQ FINE 02/23/24 [History] Triamcinolone 0.1% Cream [Kenalog 0.1% Cream] 1 applic TOPICAL BID 02/23/24 [History] Zolpidem Tartrate [Ambien] 10 mg PO HS PRN 02/23/24 [History] Amoxic-Pot Clav 875-125Mg [Augmentin 875-125] 1 tab PO BID 10 Days #20 tab 02/27/24 [Rx] HYDROcodone/APAP 5-325MG [[place]rc[place] 5-325] 1 each PO Q4HR PRN #18 tab 02/27/24 [Rx] Follow up Appointment(s)/Referral(s): Sd Suero MD [Primary Care Provider] - 1-2 days (office not answering Please call to schedule appointment ) Chance Mohan MD [STAFF PHYSICIAN] - 03/05/24 3:30 pm Activity/Diet/Wound Care/Special Instructions: Activity: As tolerated. No lifting > 10 lbs until follow up with your general surgeon. Take breaks as needed. You may shower but no soaking in tub or swimming. Diet: Heart healthy and carb consistent diet. Avoid salts, or foods with hidden salts such as canned or boxed foods and frozen dinners. Extra salt makes your heart work harder and traps the fluid in your body for longer. Special Instructions: Take all of your medications as directed and remember to keep all of your doctor's appointments and follow-up as needed. Have a safe and wonderful vacation. Remember to take it easy!! Thank you for allowing us to participate in your care, it was truly a pleasure having you for our patient!!! . Discharge Disposition: HOME SELF-CARE
[2024-02-27 12:16] VITALS: BP 119/74; PULSE 76
[2024-02-27 18:11] LABS: Appearance,BF Blood Tinged (Clear)
== END 2024-02-27 13:32 | disposition home or self-care (01) | DRG 373 ==
LOC: EC 18:44 → 4SSUR 21:45
PROVIDERS: ADMIT Internal Medicine; ATTEND Internal Medicine
PROC: 0J983ZX Drainage of Abdomen Subcutaneous Tissue and Fascia, Percutaneous Approach, Diagnostic (ICD-10-PCS; principal; 2024-02-26)
DX: K65.1 Peritoneal abscess (principal); E11.9 Type 2 diabetes mellitus without complications; K76.89 Other specified diseases of liver; I10 Essential (primary) hypertension; K59.00 Constipation, unspecified; E78.5 Hyperlipidemia, unspecified; Z79.899 Other long term (current) drug therapy; Z90.49 Acquired absence of other specified parts of digestive tract; Z79.85 Long-term (current) use of injectable non-insulin antidiabetic drugs; Z98.84 Bariatric surgery status
CPT/HCPCS: 10030; 36415; 76705; 76942; 80048; 80053; 81003; 83605; 83690; 83735; 85025; 85027; 85610; 85730; 87070; 87075; 87077; 87186; 87205; 88108; 88305; 89050; 96365; 96366; 99285

== ENCOUNTER → 2024-04-01 | Outpatient (CLI) | payer OTHER ==
[~2024-04-01] MED LIST: ALPRAZolam 0.5 MG TAB ONE; HYDROmorphone 0.5 MG/0.5 ML SYRINGE ONE
[2024-04-01 10:12] LABS: Glucose,Whole Blood 80 mg/dL (70-110)
--- NOTE | 2024-04-01 11:23 | CT ---
EXAMINATION TYPE: CT guided abscess drainage DATE OF EXAM: 04/01/2024 11:03 AM CLINICAL INDICATION:Male, 58 years old with history of K65.1 ABDOMINAL WALL ABSCESS; abdominal wall a bcess, drainage, PHH COMPARISON: None TECHNIQUE: CT-guided abscess drainage with pigtail catheter placement. CT DLP: 1663 mGycm, Automated exposure control for dose reduction was used. Contrast used: mL of , none Oral contrast used: none ATTENDING: Justin Enamorado D.O. PROCEDURE: Initial CT localizer images were taken which showed safest allowable access to the right flank fluid collection. The patient was prepped, draped in the usual sterile fashion, and locally anesthetized. A 18 x 20 cm Hernandez luis daniel needle was used to access the fluid collection. Over 0.038 Bentson guidewi re exchange an 8.5 luxembourgish pig tail catheter was placed. Approximately 32 mL of purulent and somewhat bloody fluid was drained and sent to the lab for analysi s. A drainage bag was then attached the catheter. There was minimal blood loss and post-procedure hemostasis was achieved. The patient tolerated the procedure well without complication. Patient was transferred to the general medical floor in stable condition. IMPRESSION: CT guided placement of a percutaneous pigtail drainage catheter in the right flank fluid collection just deep to the abdominal wall musculature..
== END | disposition home or self-care (01) ==
LOC: RADPROMAIN 09:01
PROVIDERS: ATTEND Surgery
DX: K65.1 Peritoneal abscess
CPT/HCPCS: 75989; 87070; 87075; 87077; 87186; 87205

== ENCOUNTER 2024-04-09 09:00 | Day surgery (SDC) | payer OTHER ==
[2024-04-09 09:18] VITALS: BP 157/95; PULSE 60; RESP 12; TEMP 97.8
== END 2024-04-09 09:40 | disposition home or self-care (01) ==
LOC: RADPROMAIN 09:00
PROVIDERS: ATTEND Radiology Body Imaging
DX: L02.91 Cutaneous abscess, unspecified (principal)
CPT/HCPCS: 99213

== ENCOUNTER 2024-04-15 07:47 | Day surgery (SDC) | payer OTHER ==
[2024-04-15 09:23] VITALS: BP 124/75; PULSE 66; RESP 16; TEMP 97.9
== END 2024-04-15 09:26 | disposition home or self-care (01) ==
LOC: RADPROMAIN 07:47
PROVIDERS: ATTEND Radiology Body Imaging
DX: L02.91 Cutaneous abscess, unspecified (principal)
CPT/HCPCS: 99213

== ENCOUNTER 2024-04-22 08:09 | Day surgery (SDC) | payer OTHER ==
[2024-04-22 09:00] VITALS: BP 124/74; PULSE 66; RESP 18; TEMP 98.1
== END 2024-04-22 09:05 | disposition home or self-care (01) ==
LOC: RADPROMAIN 08:09
PROVIDERS: ATTEND Radiology Body Imaging
DX: L02.91 Cutaneous abscess, unspecified
CPT/HCPCS: 99213

== ENCOUNTER 2024-04-29 07:58 | Day surgery (SDC) | payer OTHER ==
[2024-04-29 09:25] VITALS: BP 113/68; PULSE 78; RESP 18; TEMP 97.4
== END 2024-04-29 09:00 | disposition home or self-care (01) ==
LOC: RADPROMAIN 07:58
PROVIDERS: ATTEND Radiology Body Imaging
DX: L02.91 Cutaneous abscess, unspecified
CPT/HCPCS: 99213

== ENCOUNTER 2024-05-06 07:52 | Day surgery (SDC) | payer OTHER ==
[2024-05-06 09:11] VITALS: BP 121/72; PULSE 80; RESP 16; TEMP 98.4
== END 2024-05-06 08:40 | disposition home or self-care (01) ==
LOC: RADPROMAIN 07:52
PROVIDERS: ATTEND Radiology Body Imaging
DX: Z48.03 Encounter for change or removal of drains (principal)
CPT/HCPCS: 99213

== ENCOUNTER → 2024-07-12 | Outpatient (CLI) | payer OTHER ==
--- NOTE | 2024-07-12 11:46 | CT ---
EXAMINATION TYPE: CT abdomen pelvis w con DATE OF EXAM: 07/12/2024 9:41 AM COMPARISON: 03/14/2024, 04/01/2024. CLINICAL INDICATION: Male, 59 years old with history of R19.01 Right abdominal wall mass; right abdom inal wall mass/abcess TECHNIQUE: Axial CT abdomen pelvis w con;Sagittal and coronal reformats were created on a separate w orkstation. Contrast used:100 mL of Isovue 300 with IV Contrast, (none if empty) Oral contrast used: with Oral Contrast (none if empty) CT DLP: 1826.8 mGycm, Automated exposure control for dose reduction was used. FINDINGS: LOWER CHEST: Unremarkable ABDOMEN LIVER: Unremarkable GALLBLADDER AND BILE DUCTS: Gallbladder surgically absent. PANCREAS: Unremarkable. SPLEEN: Unremarkable. ADRENAL GLANDS: No suspicious masses. A gastric diverticulum closely approximates the left adrenal gl and. KIDNEYS AND URETERS: No evidence of hydronephrosis or renal calculus. The ureters are unremarkable. PELVIS BLADDER: No evidence for wall thickening or mass given limitations of exam. REPRODUCTIVE: Unremarkable. ABDOMEN & PELVIS STOMACH AND BOWEL: No evidence of bowel obstruction. Post surgical changes the gastric lumen with sma ll gastric diverticulum near the left adrenal gland. What is thought to represent the appendix is loc ated in the anterior slightly left of midline upper abdomen. Appendix is normal. PERITONEUM/RETROPERITONEUM: No evidence of pneumoperitoneum or free fluid. VASCULATURE: Mild atherosclerotic calcifications are present throughout the abdominal aorta and its b ranches. No evidence of aortic aneurysm. MUSCULOSKELETAL: No acute osseous abnormalities. Moderate disc degeneration changes are present throu ghout the thoracolumbar spine. LYMPH NODES: No gross evidence for lymphadenopathy. SOFT TISSUE/ABDOMINAL WALL: Right abdominal wall low density area compatible with fluid measuring 42 x 15 x 57 millimeters with soft tissue linear abnormality extending to the skin surface series 5 imag e 46 IMPRESSION: Reduction in right lateral wall organizing fluid collection which previously had drainage tube cathet er in place.. [facility], , 07/12/2024 11:44 AM
== END | disposition home or self-care (01) ==
LOC: RADCTMAIN 07:46
PROVIDERS: ATTEND Surgery
DX: R19.01 Right upper quadrant abdominal swelling, mass and lump (principal); Z48.03 Encounter for change or removal of drains
CPT/HCPCS: 74177; Q9967